=== PATIENT | female | born 1945 | race African-American/Black ===

== ENCOUNTER 2020-03-04 18:17 | Inpatient (IN) | payer OTHER ==
[~2020-03-04] VITALS: Ht 157.5 cm; Wt 104.0 kg
[2020-03-04 19:06] LABS: BASO # 0.1 x10^3/uL (0.0-0.2); BASO % 1 % (0-3); EOS # 0.3 x10^3/uL (0.0-0.7); EOS % 2 % (0-3); HEMATOCRIT 34.5 % (36.0-47.0); HEMOGLOBIN 11.3 g/dL (12.0-15.5); LYMPH # 1.8 x10^3/uL (1.0-4.8); LYMPH % 13 % (24-48); MEAN CORPUSCULAR HEMOGLOBIN 29 pg (25-35); MEAN CORPUSCULAR HGB CONC 33 g/dL (31-37); MEAN CORPUSCULAR VOLUME 87 fL (79-100); MONO % 7 % (0-9); NEUT # 10.4 x10^3/uL (1.8-7.7); NEUT % 77 % (31-73); PLATELET COUNT 364 x10^3/uL (140-400); RED BLOOD COUNT 3.98 x10^6/uL (3.50-5.40); RED CELL DISTRIBUTION WIDTH 14.9 % (11.5-14.5); WHITE BLOOD COUNT 13.5 x10^3/uL (4.0-11.0)
[2020-03-04 19:15] LABS: CALCIUM 9.5 mg/dL (8.5-10.1); CREATININE 2.3 mg/dL (0.6-1.0); GFR 25.2; POTASSIUM 3.6 mmol/L (3.5-5.1)
[2020-03-04] MEDS ORDERED: ONDANSETRON PF 4 MG/2 ML VIAL. IV PRN (19:15)
[2020-03-04 19:20] LABS: ALBUMIN 2.8 g/dL (3.4-5.0); ALBUMIN/GLOBULIN RATIO 0.5 (1.0-1.7); TOTAL PROTEIN 8.3 g/dL (6.4-8.2)
[2020-03-04 19:39] LABS: C-REACTIVE PROTEIN 243.5 mg/L (0-3.3)
--- NOTE | 2020-03-04 19:44 | PHYS DOC ---
Past Medical History Past Medical History: Arthritis, Hypertension Additional Past Medical Histor: COLON CX, COLON CX, PE'S, CELLULITIS Additional Past Surgical Histo: COLON RESECTION, Smoking Status: Never Smoker Alcohol Use: None General Adult EDM: Chief Complaint: HIP PAIN HPI: HPI: Patient is a 74 year old AA presents to the emergency department with complaints of left hip pain for the last week that is so severe she is unable to bear weight. Patient denies any recent fall or trauma to her hip. She also complains of bilateral lower extremity redness that is worse on the right than the left. Patient states she has been fighting off a cellulitis infection for several months. She denies any drainage from her legs. She denies any fever, cough, shortness of breath, body aches, fatigue, nausea, vomiting, diarrhea, abdominal pain, chest pain, palpitations, or headache. She currently rates the pain in her left hip a 5 out of 10 on the pain scale, she denies any alleviating factors, states that the pain in her hip gets worse with movement and weightbearing. Patient denies any exposure to anyone with COVID symptoms. Review of Systems: Review of Systems: Constitutional: Denies fever or chills. [] Eyes: Denies change in visual acuity. [] HENT: Denies nasal congestion or sore throat. [] Respiratory: Denies cough or shortness of breath. [] Cardiovascular: Denies chest pain or edema. [] GI: Denies abdominal pain, nausea, vomiting, bloody stools or diarrhea. [] : Denies dysuria. [] Musculoskeletal: See HPI Integument: See HPI Neurologic: Denies headache, focal weakness or sensory changes. [] Endocrine: Denies polyuria or polydipsia. [] Lymphatic: Denies swollen glands. [] Psychiatric: Denies depression or anxiety. [] Heart Score: Risk Factors: Risk Factors: DM, Current or recent (<one month) smoker, HTN, HLP, family history of CAD, obesity. Risk Scores: Score 0 - 3: 2.5% MACE over next 6 weeks - Discharge Home Score 4 - 6: 20.3% MACE over next 6 weeks - Admit for Clinical Observation Score 7 - 10: 72.7% MACE over next 6 weeks - Early Invasive Strategies Current Medications: Current Medications Medications (Trade) Dose Ordered Sig/Estee Start Time Stop Time Status Last Admin Dose Admin Fentanyl Citrate (Fentanyl 2ml Vial) 50 mcg PRN Q1HR PRN 03/04/20 19:15 03/05/20 19:14 Ondansetron HCl (Zofran) 4 mg PRN Q8HRS PRN 03/04/20 19:15 03/05/20 19:14 Allergies: Allergies: Allergies Coded Allergies Type Severity Reaction Last Updated Verified doxycycline Allergy Mild RASH 03/04/20 Yes hydralazine Allergy Mild RASH 03/04/20 Yes morphine Allergy Mild RASH 03/04/20 Yes Physical Exam: PE: Constitutional: Well developed, well nourished, no acute distress, non-toxic appearance, obese. [] HENT: Normocephalic, atraumatic, bilateral external ears normal, nose normal. [] Eyes: PERRLA, EOMI, conjunctiva normal, no discharge. [] Neck: Normal range of motion, no tenderness, supple, no stridor. [] Cardiovascular:Heart rate regular rhythm, no murmur [] Lungs & Thorax: Bilateral breath sounds clear to auscultation, Respirations even and unlabored, no retractions, no respiratory distress [] Abdomen:soft, no tenderness, no masses, no pulsatile masses. [] Skin: Warm, dry; erythema, 2+ edema, and warmth of the right lower extremity below the knee extending to the foot without weeping concerning for cellulitis; lower left extremity redness, 2+ edema, and warmth from the mid calf to the ankle concerning for cellulitis. Back: No tenderness Extremities: Left hip:no bony tenderness, no cyanosis, no clubbing, ROM and limited due to pain, no shortening or rotation noted Neurologic: Alert and oriented X 3, no focal deficits noted. [] Psychologic: Affect normal, judgement normal, mood normal. [] Current Patient Data: Labs: Laboratory Tests Test 03/04/20 18:56 White Blood Count 13.5 x10^3/uL (4.0-11.0) H Red Blood Count 3.98 x10^6/uL (3.50-5.40) Hemoglobin 11.3 g/dL (12.0-15.5) L Hematocrit 34.5 % (36.0-47.0) L Mean Corpuscular Volume 87 fL (79-100) Mean Corpuscular Hemoglobin 29 pg (25-35) Mean Corpuscular Hemoglobin Concent 33 g/dL (31-37) Red Cell Distribution Width 14.9 % (11.5-14.5) H Platelet Count 364 x10^3/uL (140-400) Neutrophils (%) (Auto) 77 % (31-73) H Lymphocytes (%) (Auto) 13 % (24-48) L Monocytes (%) (Auto) 7 % (0-9) Eosinophils (%) (Auto) 2 % (0-3) Basophils (%) (Auto) 1 % (0-3) Neutrophils # (Auto) 10.4 x10^3/uL (1.8-7.7) H Lymphocytes # (Auto) 1.8 x10^3/uL (1.0-4.8) Monocytes # (Auto) 1.0 x10^3/uL (0.0-1.1) Eosinophils # (Auto) 0.3 x10^3/uL (0.0-0.7) Basophils # (Auto) 0.1 x10^3/uL (0.0-0.2) Activated Partial Thromboplast Time 31 SEC (24-38) Sodium Level 137 mmol/L (136-145) Potassium Level 3.6 mmol/L (3.5-5.1) Chloride Level 98 mmol/L (98-107) Carbon Dioxide Level 28 mmol/L (21-32) Anion Gap 11 (6-14) Blood Urea Nitrogen 32 mg/dL (7-20) H Creatinine 2.3 mg/dL (0.6-1.0) H Estimated GFR (Cockcroft-Gault) 25.2 BUN/Creatinine Ratio 14 (6-20) Glucose Level 94 mg/dL (70-99) Calcium Level 9.5 mg/dL (8.5-10.1) Total Bilirubin Pending Aspartate Amino Transferase (AST) Pending Alanine Aminotransferase (ALT) Pending Alkaline Phosphatase Pending C-Reactive Protein, Quantitative Pending Total Protein Pending Albumin Pending Albumin/Globulin Ratio Pending Laboratory Tests 03/04/20 18:56 Laboratory Tests 03/04/20 18:56 Vital Signs: Vital Signs Date Time Temp Pulse Resp B/P (MAP) Pulse Ox O2 Delivery O2 Flow Rate FiO2 03/04/20 19:30 79 20 114/56 (75) 100 Room Air 03/04/20 18:36 98.6 98.6 EKG: EKG: [] Radiology/Procedures: Radiology/Procedures: PROCEDURE: HIP LEFT 2V WITH PELVIS EXAM: AP pelvis, AP and lateral views left hip DATE: 03/04/2020 7:09 PM INDICATION: Left hip pain COMPARISON: No Prior FINDINGS/ IMPRESSION: 1. Within the constraints of osteopenia, no evidence for acute fracture or dislocation. Given the degree of osteopenia, if there is persistent clinical concern for fracture, MRI is recommended. 2. Hip joint spaces are preserved. 3. Lower lumbar spine degenerative changes are partially profiled.[] Course & Med Decision Making: Course & Med Decision Making Pertinent Labs and Imaging studies reviewed. (See chart for details) 1909-spoke with Dr. Garnett who is the admitting physician, and care was assumed following discussion of patient. Patient's vital signs stable. Patient remains afebrile, appears nontoxic, respirations even and unlabored. Patient will be admitted to the med/surg floor. Patient's case and plan of care also discussed with Dr. Crews [] Joon Disclaimer: Joon Disclaimer: This electronic medical record was generated, in whole or in part, using a voice recognition dictation system. Departure Departure Impression: Primary Impression: Cellulitis of right lower extremity Additional Impression: Unable to bear weight Disposition: ADMITTED INPATIENT Admitting Physician: Fortunato Garnett Condition: STABLE Referrals: AFIA DE LUNA (PCP) CYRUS DIAZ APRN Mar 04, 2020 19:44
[2020-03-04] MEDS: fentaNYL PF VIAL 100 MCG/2 ML VIAL IV PRN (19:58)
--- NOTE | 2020-03-04 20:08 | RAD ---
EXAM: AP pelvis, AP and lateral views left hip DATE: 03/04/2020 7:09 PM INDICATION: Left hip pain COMPARISON: No Prior FINDINGS/ IMPRESSION: 1. Within the constraints of osteopenia, no evidence for acute fracture or dislocation. Given the degree of osteopenia, if there is persistent clinical concern for fracture, MRI is recommended. 2. Hip joint spaces are preserved. 3. Lower lumbar spine degenerative changes are partially profiled. 4. Vascular calcifications are seen. Electronically signed by: Mane Purcell MD (03/04/2020 8:05 PM) CRYSTAL
--- NOTE | 2020-03-04 20:20 | NUR ---
The patient, SHAMIKA BEAR, 74 y/o, F admitted by ALESSIA JOHNSTON MD, was given written information regarding hospital policies, unit procedures and contact persons. Valuables left with daughter and taken home. Daughter left personal Bible with Patient Daughter has list of medication and said, Pt takes Albuterol as needed, Tylenol as needed, Potassium 20MeQ as needed, Lasix 40 mg in AM, and valsartan/ HTZ, spoke with pharmacy and suggested to verify amounts of medication in the AM with [facility].
[2020-03-04] MEDS: CLINDAMYCIN 600MG PREMIX 50 ML IV SCH (21:32)
[2020-03-04 23:00] VITALS: BP 153/107
[2020-03-05] MEDS: fentaNYL PF VIAL 100 MCG/2 ML VIAL IV PRN ×2 (01:11→07:35)
[2020-03-05 03:00] VITALS: BP 125/55
[2020-03-05] MEDS ORDERED: ACETAMINOPHEN 500 MG TABLET PO PRN (04:45)
[2020-03-05] MEDS ORDERED: ALBUTEROL SULFATE 2.5 MG/3 ML NEBU. NEB PRN (04:45)
--- NOTE | 2020-03-05 05:02 | NUR ---
Pt's daughter called and verified amounts and times for medications. Pt brought from home Thera worx Relief for muscle cramps. Sending bottle to pharmacy to label. Pt is aware that will need to evaluate all medication.
[2020-03-05] MEDS: CLINDAMYCIN 600MG PREMIX 50 ML IV SCH ×3 (06:10→21:56)
[2020-03-05 07:15] VITALS: BP 125/53
[2020-03-05] MEDS: HYDROcodone/APAP 7.5/325MG 1 TAB TABLET PO PRN ×3 (08:56→21:57)
[2020-03-05] MEDS: hydroCHLOROthiazide 25 MG TABLET PO SCH (08:57)
[2020-03-05] MEDS: FUROSEMIDE 40 MG TABLET. PO SCH (08:58)
[2020-03-05] MEDS ORDERED: VALSARTAN PO SCH (09:00)
[2020-03-05] MEDS ORDERED: HCTZ PO SCH (09:00)
[2020-03-05 09:51] LABS: BASO # 0.1 x10^3/uL (0.0-0.2); BASO % 1 % (0-3); EOS # 0.3 x10^3/uL (0.0-0.7); EOS % 3 % (0-3); HEMATOCRIT 32.7 % (36.0-47.0); HEMOGLOBIN 10.8 g/dL (12.0-15.5); LYMPH # 1.1 x10^3/uL (1.0-4.8); LYMPH % 9 % (24-48); MEAN CORPUSCULAR HEMOGLOBIN 29 pg (25-35); MEAN CORPUSCULAR HGB CONC 33 g/dL (31-37); MEAN CORPUSCULAR VOLUME 86 fL (79-100); MONO # 0.8 x10^3/uL (0.0-1.1); MONO % 7 % (0-9); NEUT # 9.1 x10^3/uL (1.8-7.7); NEUT % 80 % (31-73); PLATELET COUNT 368 x10^3/uL (140-400); RED BLOOD COUNT 3.78 x10^6/uL (3.50-5.40); RED CELL DISTRIBUTION WIDTH 14.5 % (11.5-14.5); WHITE BLOOD COUNT 11.4 x10^3/uL (4.0-11.0)
[2020-03-05 09:59] LABS: CALCIUM 8.5 mg/dL (8.5-10.1); CREATININE 1.7 mg/dL (0.6-1.0); GFR 35.7; POTASSIUM 3.4 mmol/L (3.5-5.1)
[2020-03-05] MEDS ORDERED: fentaNYL PF VIAL 100 MCG/2 ML VIAL IVP PRN (10:15)
--- NOTE | 2020-03-05 10:17 | PDOC ---
Provider Note Provider Note Pt seen.H&P dictated.#[id number]. ALESSIA JOHNSTON MD March 05, 2020 10:17
[2020-03-05] MEDS ORDERED: IOHEXOL 240 MG/ML 50ML VIAL. PO ONE (10:30)
[2020-03-05] MEDS ORDERED: CONTRAST GIVEN. MC PRN (10:30)
[2020-03-05] MEDS ORDERED: ENOXAPARIN 30 MG/0.3 ML SYRINGE. SQ SCH (11:00)
--- NOTE | 2020-03-05 11:05 | HP ---
ADMIT DATE: 03/04/2020 LOCATION: [facility]. REASON FOR ADMISSION TO THE HOSPITAL: Severe hip pain, not able to ambulate at home, worse for the last 4-5 days. HISTORY OF PRESENT ILLNESS: The patient is a 75-year-old female, patient of Dr. Spears. She usually ambulates with a cane and she thinks she had eaten something bad at [facility] couple of days ago. Her stomach got upset and had pain in the lower abdomen. She also noticed some cellulitis of lower extremities, but she was having severe pain in the left hip. She could hardly move around and was brought into the hospital. The patient had cellulitis of the lower extremity and was started on clindamycin. X-ray of the hip did not show any fracture, but she is not able to even bear weight on that and was admitted to the hospital for further investigation and treatment. The patient has a history of chronic kidney disease stage 3, sees Dr. Aguilar, hypertension, obesity. PAST SURGICAL HISTORY: Had a colon cancer in 2012 and she had part of the colon removed, had chemo for 1 year, mostly at [facility] and the last followup was 3 years ago. She says she had a colonoscopy at that time. ALLERGIES: THE PATIENT IS ALLERGIC TO DOXYCYCLINE, MORPHINE AND HYDRALAZINE. MEDICATIONS AT HOME: The patient is on Lasix 40 mg, losartan 100 mg, hydrochlorothiazide 25 mg. PERSONAL HISTORY: No history of smoking, alcohol, drug abuse. FAMILY HISTORY: Positive for heart problems, hypertension, kidney problems. REVIEW OF SYSTEMS: The patient has severe pain in the left, had stomach upset a week ago when she ate bad burger at [facility] and had stomach upset at that time. Denies any fever. PHYSICAL EXAMINATION: GENERAL: The patient is obese, weighs 104 kg, BMI is 42. Not in distress. HEENT: Head is atraumatic. Pupils are equal. Oral cavity: No congestion. NECK: Supple. Thyroid not enlarged. JVD not elevated. CHEST: Symmetrical. CARDIOVASCULAR: S1, S2. LUNGS: Clear to auscultation. No wheezing. ABDOMEN: Scar in the midline from previous abdominal surgeries. Soft, slight discomfort in lower abdomen. No rebound. EXTERNAL GENITALIA: No Du. RECTAL: Deferred. EXTREMITIES: Left leg, no swelling. Right leg, some redness [id number] and slightly warm to touch and slightly tender. The patient has severe pain in the left hip, not able to even bend the hip or move around in the hip and no rash in the skin. LABORATORY DATA: Shows a white count of 13.5, hemoglobin 11.3, platelets 364. INR is 31. Electrolytes show sodium 137, potassium 3.6, chloride 98, bicarbonate 28, anion gap 11, BUN 32, creatinine 2.3, glucose 94. LFTs normal. FINAL IMPRESSION: 1. Severe hip pain, not able to move, not sure the reason, will do workup. 2. Right leg cellulitis, on clindamycin. 3. Chronic kidney disease stage 3. 4. Morbid obesity. 5. History of colon cancer, had a surgery and chemo in 2012. Last colon check was 3 years ago. PLAN: At this time, the patient was admitted to the hospital. We will start on clindamycin for cellulitis, venous Doppler of lower extremities. We will also have CT of the chest, abdomen and pelvis because of history of colon cancer, rule out any recurrence and also CT of the lumbar spine as well as left hip including pelvis to rule out any metastasis. We will also have orthopedic consult and also rehab consult. The patient has chronic kidney disease as seen by Renal. We will hold off at this point and also Oncology will hold off at this point until we get the results of CAT scan. ALESSIA JOHNSTON MD DR: FABIO/kalpesh JOB#: [id number] / [id number] AFIA Gallardo
[2020-03-05 11:48] VITALS: BP 128/77
--- NOTE | 2020-03-05 12:10 | NUR ---
SW following. Discussed with RN, pt from home with daughter, room air. Pt getting CAT scan today, clindamycin for cellulitis. Pt not able to bear weight on one hip. No PT/OT ordered at this time. SW will continue to follow for discharge planning.
[2020-03-05] MEDS: oxyCODONE/APAP 10/325 1 TAB TABLET PO PRN (12:48)
[2020-03-05] MEDS: LOSARTAN POTASSIUM 50 MG TABLET. PO SCH (12:52)
--- NOTE | 2020-03-05 12:59 | RAD ---
INDICATION: Leg pain COMPARISON: None. TECHNIQUE: Grayscale, color and doppler ultrasound images were obtained of the bilateral lower extremity venous vasculature. RIGHT: No thrombus identified in the common femoral vein, femoral vein, popliteal vein. LEFT: No thrombus identified in the common femoral vein, femoral vein, popliteal vein. IMPRESSION: * No thrombus identified in deep venous system of bilateral lower kidneys with the calf veins not well evaluated. * 33 x 20 x 17 mm hypoechoic lesion of the right groin. Could be from an abnormal lymph node within the area or soft tissue mass. Further workup option includes obtaining a follow-up to ensure that this appropriately decreases in size or obtaining a biopsy. Electronically signed by: He Giron MD (03/05/2020 12:56 PM) [id number]
--- NOTE | 2020-03-05 13:28 | CONS ---
DATE OF CONSULTATION: 03/05/2020 ATTENDING PHYSICIAN: Fortunato Garnett MD REASON FOR CONSULTATION: The patient was seen at the request of Dr. Garnett for rehab evaluation. LOCATION: She is in room 436. HISTORY OF PRESENT ILLNESS: This is a 74-year-old female patient of Dr. Spears, usually walks using a cane. A few days ago, she went to [facility] and came home and work on her yard. She had osteoarthritis of her knees and lower extremity edema and cellulitis of her lower extremities. She started having severe left hip area pain, difficulty to get around, was admitted to the Emergency Room on 03/04/2020. She lives alone and had steps to enter the house plus to the basement where washer and dryer are located. The patient had radiological studies, which failed to reveal any acute abnormality. The patient denies any back pain. She is with known chronic kidney disease stage 3, being followed by Nephrology, hypertension, obesity, carcinoma of colon in 2012, had part of the colon removed, had chemotherapy for about 1 year. ALLERGIES: THE PATIENT IS KNOWN ALLERGIC TO DOXYCYCLINE, MORPHINE AND HYDRALAZINE. PHYSICAL EXAMINATION: Physical examination today revealed an elderly female. She is alert, oriented to time, place, person and circumstance and follows commands appropriately, moves all 4 extremities voluntarily where she had 4+/5 grade muscle strength and deep tendon reflexes are 2+ and symmetrical and she had equal perception of touch and pinprick sensation bilaterally. She had crepitus on range of motion of her knee joint. She had significant discomfort on external rotation of left hip joint. The patient had tenderness to palpation over left trochanteric bursa area. No significant tenderness to palpation over lumbar spine area. Straight leg raising test is negative bilaterally. She had significant edema of her feet and legs, right side more than left side, tenderness to palpation over right calf or medial knee joint line. The patient requires help with rolling from side to side. I have not tested her transfers or ambulation skills at this time. ASSESSMENT AND PLAN: Elderly female with morbid obesity, chronic kidney disease, hypertension with chronic lower extremity cellulitis and clinical evidence of lymphedema of her feet and legs, right side more than left side. Also, degenerative joint disease of both knees with degenerative changes in her left hip got worse after she did some yard work a few days ago with mobility limitations secondary to severe left hip pain. RECOMMENDATIONS: As she had chronic kidney disease, to start her on prednisone and Protonix and to get her up as tolerated, to even ask Radiology to proceed with injecting her left hip joint using Marcaine and Depo-Medrol. Dr. Garnett, I appreciate asking me to participate in the care of this interesting patient. I will be glad to see her for followup with you on as needed basis. DANIAL WEBB MD DR: MARILIN/nts JOB#: [id number] / [id number]
--- NOTE | 2020-03-05 13:35 | RAD ---
CT LOWER EXTREMITY WO LEFT Indication: Colon cancer, recent history of left hip pain Technique: Noncontrast CT imaging was performed of the left hip, multiplanar reconstruction images submitted. One or more of the following individualized dose reduction techniques were utilized for this examination: 1. Automated exposure control 2. Adjustment of the mA and/or kV according to patient size 3. Use of iterative reconstruction technique. Comparison: None Findings: No aggressive bony destructive lesion or acute fracture or dislocation is identified. IMPRESSION: 1. No acute fracture or bony destructive lesion is identified by CT. Electronically signed by: Roe Ashton MD (03/05/2020 1:32 PM) [id number]
[2020-03-05] MEDS ORDERED: methylPREDNISolone ACETATE 80 MG/ML VIAL. IM ONE (13:45)
[2020-03-05] MEDS ORDERED: IOHEXOL 300 MG/ML 50 ML VIAL. IJ ONE (13:45)
[2020-03-05] MEDS ORDERED: BUPIVACAINE MPF 0.25% 10 ML VIAL. IJ ONE (13:45)
--- NOTE | 2020-03-05 13:45 | RAD ---
CT CHEST ABDOMEN PELVIS WO, CT LUMBAR SPINE WO CONTRAST Indication: Colon cancer Technique: Noncontrast CT imaging was performed of the chest, abdomen, pelvis, lumbar spine, multiplanar reconstruction images submitted. Oral contrast was given. One or more of the following individualized dose reduction techniques were utilized for this examination: 1. Automated exposure control 2. Adjustment of the mA and/or kV according to patient size 3. Use of iterative reconstruction technique. Comparison: Chest CT April 27, 2008; abdomen pelvis CT July 24, 2013 CHEST: Findings: There is some motion degradation. Minimal density in the trachea is more likely due to mucus than mass. There is some coronary calcification. There is no suspicious pulmonary nodularity, infiltrate, pleural pericardial fluid, or pneumothorax. There is multilevel thoracolumbar degenerative disc disease. There is moderate mid thoracic dextroscoliosis. IMPRESSION: 1. There is no CT evidence of metastatic disease to the chest. 2. There is coronary calcification. Abdomen pelvis FINDINGS: Accurate evaluation of the abdominal visceral organs is limited without intravenous contrast. There is no obvious focal abnormality of the liver, spleen, or pancreas allowing for noncontrast technique. There is gallstone. There is 2.8 cm AP by 1.5 cm right adrenal nodule, density measurements about 19 Hounsfield units. There is no hydronephrosis of either kidney. There is a slightly hyperdense lesion of the mid right kidney on the order 1.9 cm in size, internal density measurements of 101 Hounsfield units, greater than adjacent renal parenchyma. There is broad ventral laxity of the abdominal and pelvic fascia with underlying bowel. There is moderate to severe diverticulosis of the proximal sigmoid colon and to a somewhat lesser degree descending colon. There is relatively greater degree of distention of the transverse colon in the pelvis. Small bowel is not dilated. No free fluid or free air is identified. There are some nonspecific inguinal nodes bilaterally right greater than left, largest on the right up to about 1.1 cm short axis dimension. There are some mostly subcentimeter nodes along the iliac chains bilaterally, largest right iliac chain nodes about 1 cm short axis dimension. There are also some other more superior retroperitoneal nodes although not considered significantly enlarged based on short axis dimensions. There is probable mass of the left uterus poorly evaluated on this exam, may measure about 5 cm in size. IMPRESSION: 1.There are some nonspecific inguinal nodes bilaterally right greater than left, somewhat prominent on the right. There are also some nonspecific retroperitoneal nodes and nodes along the iliac chains although not significantly enlarged. 2. There is cholelithiasis. 3. There is colonic diverticulosis greatest of the sigmoid colon. 4. There is a hyperdense lesion of the right kidney for which attempt at ultrasound visualization recommended. This could be a complex or hemorrhagic cyst although solid mass not excluded. 5. There is likely left uterine mass, more commonly due to leiomyoma. Lumbar spine FINDINGS: Lumbar vertebral body stature is overall maintained. There is multilevel lumbar facet degenerative change. No defined bony destructive lesion is identified by CT. There is likely minimal posterior bulge L3-4. There is probable mild to moderate spinal stenosis at L3-4 in part from facet hypertrophic change and buckling of the ligamentum flavum with probable left greater than right lateral recess stenosis. There is likely degree of at least mild lateral recess stenosis bilaterally at L4-5 primarily from posteriorly by facet hypertrophic change. Facet degenerative change contributes to moderate to severe posterior narrowing of the left L5-S1 neural foramen, mild narrowing of the left at L2-3. There is also fairly severe neural foramina compromise bilaterally at T10-11 due to facet degenerative change, also [id number] narrowing on the left at T11-12. There is at least mild narrowing on the right at L4-5 and L5-S1 also from facet degenerative change. There is overall mild degenerative disc disease greatest L2-3 through L4-5. There is grade 1 anterior spondylolisthesis at L4-5 due to facet degenerative change. IMPRESSION: 1.There is multilevel thoracolumbar neural foramina compromise due to facet degenerative change, more significant narrowing on the left at L5-S1 and bilaterally at T10-T11. 2. There is grade 1 anterior spondylolisthesis L4-5. 3. Poorly evaluated on this nonmyelographic exam, there is probable mild to moderate spinal stenosis with left greater than right lateral recess stenosis at L3-4. Electronically signed by: Roe Ashton MD (03/05/2020 1:42 PM) [id number]
--- NOTE | 2020-03-05 13:52 | NUR ---
consent for left hip injection obtained. inc of urine; cleansed
[2020-03-05] MEDS ORDERED: LIDOCAINE 1% Multi-Dose 20 ML VIAL. INJ ONE (14:45)
[2020-03-05] MEDS: predniSONE 10 MG TABLET PO SCH (15:26)
[2020-03-05] MEDS: PANTOPRAZOLE 40 MG TABLET.DR. PO SCH (15:26)
[2020-03-05 15:38] VITALS: BP 139/70
--- NOTE | 2020-03-05 16:14 | RAD ---
Examination: ARTHROCENT MJR FelixT ASP/INJ LEFT History: Severe left hip pain. Comparison/Correlation: CT chest abdomen and pelvis 03/05/2020 Findings: Risks and benefits of left hip joint medication injection under fluoroscopic guidance were discussed with the patient and informed consent was obtained. Fluoroscopy was utilized for 1.2 minutes. 2 fluoroscopic images were acquired. Cleansing of the infiltrated site of needle placement with Betadine was performed. Sterile drapes were placed. 5 cc 1 percent lidocaine was administered at the anticipated site of spinal needle placement. A 6 inch 20-gauge spinal needle was then introduced under fluoroscopic guidance into the lateral aspect of the left hip joint along the left femoral head-neck junction. Approximately 3 cc of contrast was injected confirming needle placement. 80 mg of Depo-Medrol and 8 cc of Marcaine were injected into the left hip joint capsule. The patient tolerated the procedure well without immediate complications. Impression: Successful injection of Depo-Medrol and Marcaine into the left hip joint capsule. Electronically signed by: Juan M Hairston MD (03/05/2020 4:11 PM) [id number]
--- NOTE | 2020-03-05 18:20 | RAD ---
Exam: Ultrasound bilateral extremity lower arterial Indication: Pain bilateral lower extremity Technique: Real-time grayscale and color Doppler images of the bilateral lower extremity were obtained by the department reading assistant. Comparisons: None FINDINGS: Peak systolic velocities as follows(cm/s): Right: COMMERCIAL CREDIT HEAD: 182 DFA: 185 Proximal SFA: 159 Mid SFA: 111 Distal SFA: 318 Popliteal: 153 [employer]ER: 106 Peroneal: 69 TOSIN: 64 DPA: 57 Monophasic waveforms are noted throughout the right lower extremity. Left: COMMERCIAL CREDIT HEAD: 162 DFA: 81 Proximal SFA: 165 Mid SFA: 115 Distal SFA: 108 Popliteal: 214 [employer]: 24 Peroneal: 87 TOSIN: 43 DPA: 63 Monophasic waveforms are noted throughout the left lower extremity IMPRESSION: 1. Monophasic waveforms throughout the bilateral lower extremities likely indicating upstream stenosis. 2. Scattered areas of increased velocities likely in the right SFA and left popliteal artery suggesting scattered areas of moderate to severe stenosis. Electronically signed by: Desiree Valentin MD (03/05/2020 6:17 PM) [id number]
[2020-03-05 19:00] VITALS: BP 100/50
[2020-03-05 23:00] VITALS: BP 120/77
[2020-03-06 03:00] VITALS: BP 111/61
[2020-03-06] MEDS: CLINDAMYCIN 600MG PREMIX 50 ML IV SCH ×2 (06:03→16:56)
[2020-03-06 07:00] VITALS: BP 131/54
--- NOTE | 2020-03-06 08:06 | PDOC2 ---
CONSULT Date of Consult Date of Consult DATE: 03/06/20 TIME: 08:02 Reason for Consult Reason for Consult: Left hip pain Referring Physician Referring Physician: Mariola Identification/Chief Complaint Chief Complaint No complaints Source Source: Patient History of Present Illness Reason for Visit: Patient is a pleasant 74-year-old female without a history of hip complaints who tells me that in the past week she developed acute lateral and anterior hip pain, no precipitating events. The pain was so bad she had difficulty walking. She came into the hospital secondary to this unable to ambulate and out of concern for cellulitis due to some erythema in her bilateral lower extremities. Currently she is not complaining of any pain anywhere. She had an image guided injection yesterday which took care of her pain. She has been able to ambulate and is doing much better. Past Medical History Cardiovascular: HTN CENTRAL NERVOUS SYSTEM: TIA GI: GERD Heme/Onc: Cancer Psych: No pertinent hx Musculoskeletal: Osteoarthritis Past Surgical History Past Surgical History: Colon Resection Family History Family History: Heart Disease Social History No ALCOHOL: none Current Medications Current Medications Current Medications Ondansetron HCl (Zofran) 4 mg PRN Q8HRS PRN IV NAUSEA/VOMITING; Start 03/04/20 at 19:15; Stop 03/05/20 at 19:14; Status DC Fentanyl Citrate (Fentanyl 2ml Vial) 50 mcg PRN Q1HR PRN IV PAIN Last administered on 03/05/20at 07:35; Start 03/04/20 at 19:15; Stop 03/05/20 at 19:14; Status DC Clindamycin Phosphate 50 ml @ 100 mls/hr Q8HRS IV Last administered on 03/06/20at 06:03; Start 03/04/20 at 21:00 Acetaminophen (Tylenol) 500 mg PRN Q6HRS PRN PO MILD PAIN / TEMP > 100.3'F; Start 03/05/20 at 04:45 Albuterol Sulfate (Ventolin Neb Soln) 2.5 mg PRN Q4HRS PRN NEB SHORTNESS OF BREATH; Start 03/05/20 at 04:45 Furosemide (Lasix) 40 mg DAILY PO Last administered on 03/05/20at 08:58; Start 03/05/20 at 09:00 Non-Formulary Medication 1 ea DAILY PO ; Start 03/05/20 at 09:00; Status Cancel Acetaminophen/ Hydrocodone Bitart (Lortab 7.5/325) 1 tab PRN Q6HRS PRN PO MODERATE - SEVERE PAIN Last administered on 03/05/20at 21:57; Start 03/05/20 at 05:00 Losartan Potassium (Cozaar) 100 mg DAILY PO Last administered on 03/05/20 12:52; Start 03/05/20 at 09:00 Hydrochlorothiazide (Hydrodiuril) 25 mg DAILY PO Last administered on 03/05/20 08:57; Start 03/05/20 at 09:00 Oxycodone/ Acetaminophen (Percocet 10/325) 1 tab PRN Q4HRS PRN PO hip pain Last administered on 03/05/20 12:48; Start 03/05/20 at 10:15 Fentanyl Citrate (Fentanyl 2ml Vial) 50 mcg PRN Q2HR PRN IVP PAIN; Start 03/05/20 at 10:15 Enoxaparin Sodium (Lovenox 30mg Syringe) 30 mg Q24H SQ Last administered on 03/05/20at 12:52; Start 03/05/20 at 11:00 Iohexol (Omnipaque 240 Mg/ml) 30 ml 1X ONCE PO Last administered on 03/05/20 10:30; Start 03/05/20 at 10:30; Stop 03/05/20 at 10:31; Status DC Info (CONTRAST GIVEN -- Rx MONITORING) 1 each PRN DAILY PRN MC SEE COMMENTS; Start 03/05/20 at 10:30; Stop 03/07/20 at 10:29 Prednisone (Prednisone) 10 mg DAILY PO Last administered on 03/05/20at 15:26; Start 03/05/20 at 13:00 Pantoprazole Sodium (Protonix) 40 mg DAILYAC PO Last administered on 03/05/20 15:26; Start 03/05/20 at 13:00 Methylprednisolone Acetate (DEPO-Medrol 80MG VIAL) 80 mg 1X ONCE IM Last administered on 03/05/20 13:45; Start 03/05/20 at 13:45; Stop 03/05/20 at 13:46; Status DC Bupivacaine HCl (Sensorcaine-Mpf 0.25%) 10 ml 1X ONCE IJ Last administered on 03/05/20at 13:45; Start 03/05/20 at 13:45; Stop 03/05/20 at 13:46; Status DC Iohexol (Omnipaque 300 Mg/ml) 50 ml 1X ONCE IJ Last administered on 03/05/20at 13:45; Start 03/05/20 at 13:45; Stop 03/05/20 at 13:46; Status DC Lidocaine HCl (Lidocaine 1% 20ml Vial) 20 ml 1X ONCE INJ Last administered on 03/05/20at 14:45; Start 03/05/20 at 14:45; Stop 03/05/20 at 14:47; Status DC Allergies Allergies: Coded Allergies: doxycycline (Verified Allergy, Mild, RASH, 03/04/20) hydralazine (Verified Allergy, Mild, RASH, 03/04/20) morphine (Verified Allergy, Mild, RASH, 03/04/20) ROS General: No: Chills, Night Sweats, Fatigue, Malaise, Appetite, Other PSYCHOLOGICAL ROS: No: Anxiety, Behavioral Disorder, Concentration difficultie, Decreased libido, Depression, Disorientation, Hallucinations, Hostility, Irritablity, Memory difficulties, Mood Swings, Obsessive thoughts, Physical abuse, Sexual abuse, Sleep disturbances, Suicidal ideation, Other Eyes: No Blurry vision, No Decreased vision, No Double vision, No Dry eyes, No Excessive tearing, No Eye Pain, No Itchy Eyes, No Loss of vision, No Photophobia, No Scotomata, No Uses contacts, No Uses glasses, No Other HEENT: No: Heacaches, Visual Changes, Hearing change, Nasal congestion, Nasal discharge, Oral lesions, Sinus pain, Sore Throat, Epistaxis, Sneezing, Snoring, Tinnitus, Vertigo, Vocal changes, Other ALLERGY AND IMMUNOLOGY: No: Hives, Insect Bite Sensitivity, Itchy/Watery Eyes, Nasal Congestion, Post Nasal Drip, Seasonal Allergies, Other Hematological and Lymphatic: No: Bleeding Problems, Blood Clots, Blood Transfusions, Brusing, Night Sweats, Pallor, Swollen Lymph Nodes, Other ENDOCRINE: No: Breast Changes, Galactorrhea, Hair Pattern Changes, Hot Flashes, Malaise/lethargy, Mood Swings, Palpitations, Polydipsia/polyuria, Skin Changes, Temperature Intolerance, Unexpected Weight Changes, Other Respiratory: No: Cough, Hemoptysis, Orthopnea, Pleuritic Pain, Shortness of breath, SOB with excertion, Sputum Changes, Stridor, Tachypnea, Wheezing, Other Cardiovascular: No Chest Pain, No Palpitations, No Orthopnea, No Paroxysmal Noc. Dyspnea, No Edema, No Lt Headedness, No Other Gastrointestinal: No Nausea, No Vomiting, No Abdominal Pain, No Diarrhea, No Constipation, No Melena, No Hematochezia, No Other Genitourinary: No Dysuria, No Frequency, No Incontinence, No Hematuria, No Retention, No Discharge, No Urgency, No Pain, No Flank Pain, No Other, No , No , No , No , No , No , No Musculoskeletal: Yes Joint Stiffness Neurological: No Behavorial Changes, No Bowel/Bladder ControlChng, No Confusion, No Dizziness, No Gait Disturbance, No Headaches, No Impaired Coord/balance, No Memory Loss, No Numbness/Tingling, No Seizures, No Speech Problems, No Tremors, No Visual Changes, No Weakness, No Other Skin: Yes Rash Physical Exam General: Alert, Oriented X3 HEENT: Atraumatic, EOMI Lungs: Other (Respirations are unlabored with symmetric chest rise) Heart: Regular rate Abdomen: Soft, No tenderness Extremities: Other (She has mild erythema in her calves bilaterally. She does have edema around her feet and ankles bilaterally) Neuro: Normal speech, Strength at 5/5 X4 ext, Sensation intact Psych/Mental Status: Mental status NL, Mood NL MUSCULOSKELETAL: Other (No pain with passive or active range of motion in her hip. No tenderness laterally.) Vitals VITALS Vital Signs Date Time Temp Pulse Resp B/P (MAP) Pulse Ox O2 Delivery O2 Flow Rate FiO2 03/06/20 03:00 98.7 87 18 111/61 (78) 97 98.7 03/05/20 23:00 Room Air Labs Labs Laboratory Tests Test 03/04/20 18:56 03/05/20 09:35 White Blood Count 13.5 x10^3/uL (4.0-11.0) 11.4 x10^3/uL (4.0-11.0) Red Blood Count 3.98 x10^6/uL (3.50-5.40) 3.78 x10^6/uL (3.50-5.40) Hemoglobin 11.3 g/dL (12.0-15.5) 10.8 g/dL (12.0-15.5) Hematocrit 34.5 % (36.0-47.0) 32.7 % (36.0-47.0) Mean Corpuscular Volume 87 fL (79-100) 86 fL (79-100) Mean Corpuscular Hemoglobin 29 pg (25-35) 29 pg (25-35) Mean Corpuscular Hemoglobin Concent 33 g/dL (31-37) 33 g/dL (31-37) Red Cell Distribution Width 14.9 % (11.5-14.5) 14.5 % (11.5-14.5) Platelet Count 364 x10^3/uL (140-400) 368 x10^3/uL (140-400) Neutrophils (%) (Auto) 77 % (31-73) 80 % (31-73) Lymphocytes (%) (Auto) 13 % (24-48) 9 % (24-48) Monocytes (%) (Auto) 7 % (0-9) 7 % (0-9) Eosinophils (%) (Auto) 2 % (0-3) 3 % (0-3) Basophils (%) (Auto) 1 % (0-3) 1 % (0-3) Neutrophils # (Auto) 10.4 x10^3/uL (1.8-7.7) 9.1 x10^3/uL (1.8-7.7) Lymphocytes # (Auto) 1.8 x10^3/uL (1.0-4.8) 1.1 x10^3/uL (1.0-4.8) Monocytes # (Auto) 1.0 x10^3/uL (0.0-1.1) 0.8 x10^3/uL (0.0-1.1) Eosinophils # (Auto) 0.3 x10^3/uL (0.0-0.7) 0.3 x10^3/uL (0.0-0.7) Basophils # (Auto) 0.1 x10^3/uL (0.0-0.2) 0.1 x10^3/uL (0.0-0.2) Erythrocyte Sedimentation Rate 122 (0-25) Activated Partial Thromboplast Time 31 SEC (24-38) Sodium Level 137 mmol/L (136-145) 137 mmol/L (136-145) Potassium Level 3.6 mmol/L (3.5-5.1) 3.4 mmol/L (3.5-5.1) Chloride Level 98 mmol/L (98-107) 100 mmol/L (98-107) Carbon Dioxide Level 28 mmol/L (21-32) 30 mmol/L (21-32) Anion Gap 11 (6-14) 7 (6-14) Blood Urea Nitrogen 32 mg/dL (7-20) 26 mg/dL (7-20) Creatinine 2.3 mg/dL (0.6-1.0) 1.7 mg/dL (0.6-1.0) Estimated GFR (Cockcroft-Gault) 25.2 35.7 BUN/Creatinine Ratio 14 (6-20) Glucose Level 94 mg/dL (70-99) 114 mg/dL (70-99) Calcium Level 9.5 mg/dL (8.5-10.1) 8.5 mg/dL (8.5-10.1) Total Bilirubin 1.0 mg/dL (0.2-1.0) Aspartate Amino Transf (AST/SGOT) 24 U/L (15-37) Alanine Aminotransferase (ALT/SGPT) 32 U/L (14-59) Alkaline Phosphatase 110 U/L (46-116) C-Reactive Protein, Quantitative 243.5 mg/L (0-3.3) Total Protein 8.3 g/dL (6.4-8.2) Albumin 2.8 g/dL (3.4-5.0) Albumin/Globulin Ratio 0.5 (1.0-1.7) Laboratory Tests Test 03/05/20 09:35 White Blood Count 11.4 x10^3/uL (4.0-11.0) Red Blood Count 3.78 x10^6/uL (3.50-5.40) Hemoglobin 10.8 g/dL (12.0-15.5) Hematocrit 32.7 % (36.0-47.0) Mean Corpuscular Volume 86 fL (79-100) Mean Corpuscular Hemoglobin 29 pg (25-35) Mean Corpuscular Hemoglobin Concent 33 g/dL (31-37) Red Cell Distribution Width 14.5 % (11.5-14.5) Platelet Count 368 x10^3/uL (140-400) Neutrophils (%) (Auto) 80 % (31-73) Lymphocytes (%) (Auto) 9 % (24-48) Monocytes (%) (Auto) 7 % (0-9) Eosinophils (%) (Auto) 3 % (0-3) Basophils (%) (Auto) 1 % (0-3) Neutrophils # (Auto) 9.1 x10^3/uL (1.8-7.7) Lymphocytes # (Auto) 1.1 x10^3/uL (1.0-4.8) Monocytes # (Auto) 0.8 x10^3/uL (0.0-1.1) Eosinophils # (Auto) 0.3 x10^3/uL (0.0-0.7) Basophils # (Auto) 0.1 x10^3/uL (0.0-0.2) Sodium Level 137 mmol/L (136-145) Potassium Level 3.4 mmol/L (3.5-5.1) Chloride Level 100 mmol/L (98-107) Carbon Dioxide Level 30 mmol/L (21-32) Anion Gap 7 (6-14) Blood Urea Nitrogen 26 mg/dL (7-20) Creatinine 1.7 mg/dL (0.6-1.0) Estimated GFR (Cockcroft-Gault) 35.7 Glucose Level 114 mg/dL (70-99) Calcium Level 8.5 mg/dL (8.5-10.1) Images Images Hip and pelvis x-rays were interpreted by myself. Report was reviewed. She does have some mild degenerative changes bilaterally. Assessment/Plan Assessment/Plan The image guided hip injection took care of her pain. No need for any further intervention from my standpoint. I provided her with my contact information, she can follow-up with myself if she chooses for outpatient follow-up regarding her hip. She can weight-bear as tolerated. Activity as tolerated. Disposition per primary team PARDEEP BILLINGS II, MD March 06, 2020 08:06
[2020-03-06] MEDS: hydroCHLOROthiazide 25 MG TABLET PO SCH (08:42)
[2020-03-06] MEDS: FUROSEMIDE 40 MG TABLET. PO SCH (08:43)
[2020-03-06] MEDS: PANTOPRAZOLE 40 MG TABLET.DR. PO SCH (08:43)
[2020-03-06] MEDS: predniSONE 10 MG TABLET PO SCH (08:43)
[2020-03-06] MEDS: LOSARTAN POTASSIUM 50 MG TABLET. PO SCH (08:44)
--- NOTE | 2020-03-06 10:09 | PDOC ---
PROGRESS NOTES Subjective Subjective She admits some easing of her pain and she can sit and stand but still having difficulty to walk. Objective Objective Vital Signs Date Time Temp Pulse Resp B/P (MAP) Pulse Ox O2 Delivery O2 Flow Rate FiO2 03/06/20 08:00 Room Air 03/06/20 07:00 97.8 85 18 131/54 (79) 96 97.8 Intake and Output 03/06/20 06:59 Intake Total 745 ml Balance 745 ml Intake Oral 695 ml IV Total 50 ml # Voids 3 Physical Exam Physical Exam She continues with tenderness to palpation over left trochanteric bursa and no tenderness to palpation over lumbar area. She is sitting at edge of bed. She continues with lower extremity edema,right >left. Her c-reactive protein and sedimentation rate are elevated. Plan Plan of Care To consider injecting painful left trochanteric bursa,if pain persists. To conrinue present physical and occupational therapy follow up and to rehab or SNF or home with home health when medically stable. Comment Review of Relevant I have reviewed the following items ondina (where applicable) has been applied. Labs Laboratory Tests Test 03/04/20 18:56 03/05/20 09:35 White Blood Count 13.5 x10^3/uL (4.0-11.0) 11.4 x10^3/uL (4.0-11.0) Red Blood Count 3.98 x10^6/uL (3.50-5.40) 3.78 x10^6/uL (3.50-5.40) Hemoglobin 11.3 g/dL (12.0-15.5) 10.8 g/dL (12.0-15.5) Hematocrit 34.5 % (36.0-47.0) 32.7 % (36.0-47.0) Mean Corpuscular Volume 87 fL (79-100) 86 fL (79-100) Mean Corpuscular Hemoglobin 29 pg (25-35) 29 pg (25-35) Mean Corpuscular Hemoglobin Concent 33 g/dL (31-37) 33 g/dL (31-37) Red Cell Distribution Width 14.9 % (11.5-14.5) 14.5 % (11.5-14.5) Platelet Count 364 x10^3/uL (140-400) 368 x10^3/uL (140-400) Neutrophils (%) (Auto) 77 % (31-73) 80 % (31-73) Lymphocytes (%) (Auto) 13 % (24-48) 9 % (24-48) Monocytes (%) (Auto) 7 % (0-9) 7 % (0-9) Eosinophils (%) (Auto) 2 % (0-3) 3 % (0-3) Basophils (%) (Auto) 1 % (0-3) 1 % (0-3) Neutrophils # (Auto) 10.4 x10^3/uL (1.8-7.7) 9.1 x10^3/uL (1.8-7.7) Lymphocytes # (Auto) 1.8 x10^3/uL (1.0-4.8) 1.1 x10^3/uL (1.0-4.8) Monocytes # (Auto) 1.0 x10^3/uL (0.0-1.1) 0.8 x10^3/uL (0.0-1.1) Eosinophils # (Auto) 0.3 x10^3/uL (0.0-0.7) 0.3 x10^3/uL (0.0-0.7) Basophils # (Auto) 0.1 x10^3/uL (0.0-0.2) 0.1 x10^3/uL (0.0-0.2) Erythrocyte Sedimentation Rate 122 (0-25) Activated Partial Thromboplast Time 31 SEC (24-38) Sodium Level 137 mmol/L (136-145) 137 mmol/L (136-145) Potassium Level 3.6 mmol/L (3.5-5.1) 3.4 mmol/L (3.5-5.1) Chloride Level 98 mmol/L (98-107) 100 mmol/L (98-107) Carbon Dioxide Level 28 mmol/L (21-32) 30 mmol/L (21-32) Anion Gap 11 (6-14) 7 (6-14) Blood Urea Nitrogen 32 mg/dL (7-20) 26 mg/dL (7-20) Creatinine 2.3 mg/dL (0.6-1.0) 1.7 mg/dL (0.6-1.0) Estimated GFR (Cockcroft-Gault) 25.2 35.7 BUN/Creatinine Ratio 14 (6-20) Glucose Level 94 mg/dL (70-99) 114 mg/dL (70-99) Calcium Level 9.5 mg/dL (8.5-10.1) 8.5 mg/dL (8.5-10.1) Total Bilirubin 1.0 mg/dL (0.2-1.0) Aspartate Amino Transf (AST/SGOT) 24 U/L (15-37) Alanine Aminotransferase (ALT/SGPT) 32 U/L (14-59) Alkaline Phosphatase 110 U/L (46-116) C-Reactive Protein, Quantitative 243.5 mg/L (0-3.3) Total Protein 8.3 g/dL (6.4-8.2) Albumin 2.8 g/dL (3.4-5.0) Albumin/Globulin Ratio 0.5 (1.0-1.7) Medications Current Medications Ondansetron HCl (Zofran) 4 mg PRN Q8HRS PRN IV NAUSEA/VOMITING; Start 03/04/20 at 19:15; Stop 03/05/20 at 19:14; Status DC Fentanyl Citrate (Fentanyl 2ml Vial) 50 mcg PRN Q1HR PRN IV PAIN Last administered on 03/05/20at 07:35; Start 03/04/20 at 19:15; Stop 03/05/20 at 19:14; Status DC Clindamycin Phosphate 50 ml @ 100 mls/hr Q8HRS IV Last administered on 03/06/20at 06:03; Start 03/04/20 at 21:00 Acetaminophen (Tylenol) 500 mg PRN Q6HRS PRN PO MILD PAIN / TEMP > 100.3'F; Start 03/05/20 at 04:45 Albuterol Sulfate (Ventolin Neb Soln) 2.5 mg PRN Q4HRS PRN NEB SHORTNESS OF BREATH; Start 03/05/20 at 04:45 Furosemide (Lasix) 40 mg DAILY PO Last administered on 03/06/20at 08:43; Start 03/05/20 at 09:00 Non-Formulary Medication 1 ea DAILY PO ; Start 03/05/20 at 09:00; Status Cancel Acetaminophen/ Hydrocodone Bitart (Lortab 7.5/325) 1 tab PRN Q6HRS PRN PO MODERATE - SEVERE PAIN Last administered on 03/05/20at 21:57; Start 03/05/20 at 05 :00 Losartan Potassium (Cozaar) 100 mg DAILY PO Last administered on 03/05/20at 12:52; Start 03/05/20 at 09:00 Hydrochlorothiazide (Hydrodiuril) 25 mg DAILY PO Last administered on 03/06/20at 08:42; Start 03/05/20 at 09:00 Oxycodone/ Acetaminophen (Percocet 10/325) 1 tab PRN Q4HRS PRN PO hip pain Last administered on 03/05/20at 12:48; Start 03/05/20 at 10:15 Fentanyl Citrate (Fentanyl 2ml Vial) 50 mcg PRN Q2HR PRN IVP PAIN; Start 03/05/20 at 10:15 Enoxaparin Sodium (Lovenox 30mg Syringe) 30 mg Q24H SQ Last administered on 03/05/20at 12:52; Start 03/05/20 at 11:00 Iohexol (Omnipaque 240 Mg/ml) 30 ml 1X ONCE PO Last administered on 03/05/20at 10:30; Start 03/05/20 at 10:30; Stop 03/05/20 at 10:31; Status DC Info (CONTRAST GIVEN -- Rx MONITORING) 1 each PRN DAILY PRN MC SEE COMMENTS; Start 03/05/20 at 10:30; Stop 03/07/20 at 10:29 Prednisone (Prednisone) 10 mg DAILY PO Last administered on 03/06/20at 08:43; Start 03/05/20 at 13:00 Pantoprazole Sodium (Protonix) 40 mg DAILYAC PO Last administered on 03/06/20 08:43; Start 03/05/20 at 13:00 Methylprednisolone Acetate (DEPO-Medrol 80MG VIAL) 80 mg 1X ONCE IM Last administered on 03/05/20at 13:45; Start 03/05/20 at 13:45; Stop 03/05/20 at 13:46; Status DC Bupivacaine HCl (Sensorcaine-Mpf 0.25%) 10 ml 1X ONCE IJ Last administered on 03/05/20at 13:45; Start 03/05/20 at 13:45; Stop 03/05/20 at 13:46; Status DC Iohexol (Omnipaque 300 Mg/ml) 50 ml 1X ONCE IJ Last administered on 03/05/20at 13:45; Start 03/05/20 at 13:45; Stop 03/05/20 at 13:46; Status DC Lidocaine HCl (Lidocaine 1% 20ml Vial) 20 ml 1X ONCE INJ Last administered on 03/05/20at 14:45; Start 03/05/20 at 14:45; Stop 03/05/20 at 14:47; Status DC Vitals/I & O Vital Sign - Last 24 Hours 03/05/20 03/05/20 03/05/20 03/05/20 11:48 12:48 12:52 15:38 Temp 99.5 98.9 99.5 98.9 Pulse 103 103 101 Resp 20 20 16 B/P (MAP) 128/77 (94) 128/77 139/70 (93) Pulse Ox 95 97 O2 Delivery Room Air Room Air 03/05/20 03/05/20 03/05/20 03/05/20 19:00 20:00 21:57 23:00 Temp 99.9 98.2 99.9 98.2 Pulse 95 95 Resp 20 20 18 B/P (MAP) 100/50 (67) 120/77 (91) Pulse Ox 95 98 O2 Delivery Room Air Room Air 03/05/20 03/06/20 03/06/20 03/06/20 23:00 03:00 07:00 08:00 Temp 98.7 97.8 98.7 97.8 Pulse 87 85 Resp 18 18 18 B/P (MAP) 111/61 (78) 131/54 (79) Pulse Ox 98 97 96 O2 Delivery Room Air Room Air Room Air Intake and Output 03/05/20 03/05/20 03/06/20 14:59 22:59 06:59 Intake Total 255 ml 50 ml 440 ml Balance 255 ml 50 ml 440 ml DANIAL WEBB MD March 06, 2020 10:09
--- NOTE | 2020-03-06 10:28 | PDOC ---
PROGRESS NOTES Subjective Subjective feels better today Objective Objective Vital Signs Date Time Temp Pulse Resp B/P (MAP) Pulse Ox O2 Delivery O2 Flow Rate FiO2 03/06/20 08:00 Room Air 03/06/20 07:00 97.8 85 18 131/54 (79) 96 97.8 Intake and Output 03/06/20 07:00 Intake Total 745 ml Balance 745 ml Intake Oral 695 ml IV Total 50 ml # Voids 3 Physical Exam Abdomen: Soft, No tenderness Heart: Regular rate Extremities: Other (She has mild erythema in her calves bilaterally. She does have edema around her feet and ankles bilaterally) General: Alert, Oriented X3 HEENT: Atraumatic, EOMI Lungs: Other (Respirations are unlabored with symmetric chest rise) MUSCULOSKELETAL: Other (No pain with passive or active range of motion in her hip. No tenderness laterally.) Neuro: Normal speech, Strength at 5/5 X4 ext, Sensation intact Psych/Mental Status: Mental status NL, Mood NL Skin: Other (rt leg cellulits) Assessment Assessment FINAL IMPRESSION: 1. Severe hip pain, not able to move, not sure the reason, will do workup. 2. Right leg cellulitis, on clindamycin. 3. Chronic kidney disease stage 3. 4. Morbid obesity. 5. History of colon cancer, had a surgery and chemo in 2012. Last colon check was 3 years ago. PLAN: ct chest -ve ct abd-ve ct pelvis + diverticulosis ct lumbar spine djd ct hip -ve for fracture. venous doppler neg for DVT arterial doppler dec blood flow cortisone inj to lt hip joint given ,pt feels better cr 1.7 down pot 3.4 replace spoke with rehab. sed rate and c reactive high ,Arthitis and cellulits as cause. At this time, the patient was admitted to the hospital. We will start on clindamycin for cellulitis, venous Doppler of lower extremities. We will also have CT of the chest, abdomen and pelvis because of history of colon cancer, rule out any recurrence and also CT of the lumbar spine as well as left hip including pelvis to rule out any metastasis. We will also have orthopedic consult and also rehab consult. The patient has chronic kidney disease as seen by Renal. We will hold off at this point and also Oncology will hold off at this point until we get the results of CAT scan. Comment Review of Relevant I have reviewed the following items ondina (where applicable) has been applied. Medications Current Medications Bupivacaine HCl (Sensorcaine-Mpf 0.25%) 10 ml 1X ONCE IJ Last administered on 03/05/20at 13:45; Start 03/05/20 at 13:45; Stop 03/05/20 at 13:46; Status DC Enoxaparin Sodium (Lovenox 30mg Syringe) 30 mg Q24H SQ Last administered on 03/05/20at 12:52; Start 03/05/20 at 11:00 Info (CONTRAST GIVEN -- Rx MONITORING) 1 each PRN DAILY PRN MC SEE COMMENTS; Start 03/05/20 at 10:30; Stop 03/07/20 at 10:29 Iohexol (Omnipaque 240 Mg/ml) 30 ml 1X ONCE PO Last administered on 03/05/20at 10:30; Start 03/05/20 at 10:30; Stop 03/05/20 at 10:31; Status DC Iohexol (Omnipaque 300 Mg/ml) 50 ml 1X ONCE IJ Last administered on 03/05/20at 13:45; Start 03/05/20 at 13:45; Stop 03/05/20 at 13:46; Status DC Lidocaine HCl (Lidocaine 1% 20ml Vial) 20 ml 1X ONCE INJ Last administered on 03/05/20at 14:45; Start 03/05/20 at 14:45; Stop 03/05/20 at 14:47; Status DC Methylprednisolone Acetate (DEPO-Medrol 80MG VIAL) 80 mg 1X ONCE IM Last administered on 03/05/20at 13:45; Start 03/05/20 at 13:45; Stop 03/05/20 at 13:46; Status DC Pantoprazole Sodium (Protonix) 40 mg DAILYAC PO Last administered on 03/06/20at 08:43; Start 03/05/20 at 13:00 Prednisone (Prednisone) 10 mg DAILY PO Last administered on 03/06/20at 08:43; Start 03/05/20 at 13:00 Vitals/I & O Vital Sign - Last 24 Hours 03/05/20 03/05/20 03/05/20 03/05/20 11:48 12:48 12:52 15:38 Temp 99.5 98.9 99.5 98.9 Pulse 103 103 101 Resp 20 20 16 B/P (MAP) 128/77 (94) 128/77 139/70 (93) Pulse Ox 95 97 O2 Delivery Room Air Room Air 03/05/20 03/05/20 03/05/20 03/05/20 19:00 20:00 21:57 23:00 Temp 99.9 98.2 99.9 98.2 Pulse 95 95 Resp 20 20 18 B/P (MAP) 100/50 (67) 120/77 (91) Pulse Ox 95 98 O2 Delivery Room Air Room Air 03/05/20 03/06/20 03/06/20 03/06/20 23:00 03:00 07:00 08:00 Temp 98.7 97.8 98.7 97.8 Pulse 87 85 Resp 18 18 18 B/P (MAP) 111/61 (78) 131/54 (79) Pulse Ox 98 97 96 O2 Delivery Room Air Room Air Room Air Intake and Output 03/05/20 03/05/20 03/06/20 15:00 23:00 07:00 Intake Total 255 ml 50 ml 440 ml Balance 255 ml 50 ml 440 ml ALESSIA JOHNSTON MD March 06, 2020 10:28
[2020-03-06] MEDS ORDERED: POTASSIUM CHLORIDE 20 MEQ TABLET.ER. PO ONE (10:30)
[2020-03-06] MEDS: oxyCODONE/APAP 10/325 1 TAB TABLET PO PRN (10:45)
[2020-03-06 11:00] VITALS: BP 124/66
[2020-03-06] MEDS ORDERED: POTASSIUM CHLORIDE 10 MEQ TABLET.ER. PO ONE (11:30)
[2020-03-06 15:00] VITALS: BP 121/63
[2020-03-06] MEDS: ENOXAPARIN 40 MG/0.4 ML SYRINGE. SQ SCH (16:58)
[2020-03-06 19:00] VITALS: BP 130/61
[2020-03-06 23:00] VITALS: BP 148/84
[2020-03-06] MEDS: HYDROcodone/APAP 7.5/325MG 1 TAB TABLET PO PRN (23:20)
[2020-03-07] MEDS: CLINDAMYCIN 600MG PREMIX 50 ML IV SCH ×3 (00:19→14:00)
[2020-03-07 03:00] VITALS: BP 138/63
--- NOTE | 2020-03-07 04:06 | NUR ---
Pt schedule 2200 Clindamycin was not administered until after midnight as last dose was administered late. RN called and verified with Pharmacy on when RN should hang next dose.
[2020-03-07 04:40] LABS: BASO # 0.1 x10^3/uL (0.0-0.2); BASO % 1 % (0-3); EOS % 0 % (0-3); HEMATOCRIT 35.9 % (36.0-47.0); HEMOGLOBIN 11.6 g/dL (12.0-15.5); LYMPH # 1.5 x10^3/uL (1.0-4.8); LYMPH % 7 % (24-48); MEAN CORPUSCULAR HEMOGLOBIN 28 pg (25-35); MEAN CORPUSCULAR HGB CONC 32 g/dL (31-37); MEAN CORPUSCULAR VOLUME 87 fL (79-100); MONO % 5 % (0-9); NEUT # 19.3 x10^3/uL (1.8-7.7); NEUT % 88 % (31-73); PLATELET COUNT 516 x10^3/uL (140-400); RED BLOOD COUNT 4.11 x10^6/uL (3.50-5.40); RED CELL DISTRIBUTION WIDTH 14.9 % (11.5-14.5)
[2020-03-07 05:04] LABS: CALCIUM 9.3 mg/dL (8.5-10.1); CREATININE 2.2 mg/dL (0.6-1.0); GFR 26.5; POTASSIUM 4.5 mmol/L (3.5-5.1)
[2020-03-07] MEDS: HYDROcodone/APAP 7.5/325MG 1 TAB TABLET PO PRN ×2 (05:32→10:34)
[2020-03-07 07:59] VITALS: BP 152/83
[2020-03-07 09:10] LABS: % BANDS 11 % (0-9); % LYMPHS 7 % (24-48); % MONOS 3 % (0-10); % SEGS 79 % (35-66)
[2020-03-07 09:13] LABS: PLT ESTIMATE INCREASED (ADEQUATE); TOXIC GRANULATION SLIGHT
[2020-03-07] MEDS: LOSARTAN POTASSIUM 50 MG TABLET. PO SCH (10:32)
[2020-03-07] MEDS: hydroCHLOROthiazide 25 MG TABLET PO SCH (10:33)
[2020-03-07] MEDS: predniSONE 10 MG TABLET PO SCH (10:34)
[2020-03-07] MEDS: FUROSEMIDE 40 MG TABLET. PO SCH (10:34)
[2020-03-07] MEDS: PANTOPRAZOLE 40 MG TABLET.DR. PO SCH (10:34)
[2020-03-07] MEDS: ENOXAPARIN 40 MG/0.4 ML SYRINGE. SQ SCH (10:37)
[2020-03-07 11:59] VITALS: BP 97/61
--- NOTE | 2020-03-07 12:12 | PDOC ---
PROGRESS NOTES Subjective Subjective pt feels good,want to go home Objective Objective Vital Signs Date Time Temp Pulse Resp B/P (MAP) Pulse Ox O2 Delivery O2 Flow Rate FiO2 03/07/20 10:34 20 Room Air 03/07/20 10:32 87 152/83 03/07/20 07:59 97.9 96 97.9 Intake and Output 03/07/20 06:59 Intake Total 820 ml Balance 820 ml Intake Oral 720 ml IV Total 100 ml Physical Exam Abdomen: Soft, No tenderness Heart: Regular rate Extremities: Other (She has mild erythema in her calves bilaterally. She does have edema around her feet and ankles bilaterally) General: Alert, Oriented X3 HEENT: Atraumatic, EOMI Lungs: Other (Respirations are unlabored with symmetric chest rise) MUSCULOSKELETAL: Other (No pain with passive or active range of motion in her hip. No tenderness laterally.) Neuro: Normal speech, Strength at 5/5 X4 ext, Sensation intact Psych/Mental Status: Mental status NL, Mood NL Skin: Other (rt leg cellulits) Assessment Assessment FINAL IMPRESSION: 1. Severe hip pain, not able to move, not sure the reason, will do workup. 2. Right leg cellulitis, on clindamycin. 3. Chronic kidney disease stage 3. 4. Morbid obesity. 5. History of colon cancer, had a surgery and chemo in 2012. Last colon check was 3 years ago. PLAN: ct chest -ve ct abd-ve ct pelvis + diverticulosis,gall stones, 2 cm cyst in kidney rt ct lumbar spine djd ct hip -ve for fracture. venous doppler neg for DVT arterial doppler dec blood flow cortisone inj to lt hip joint given ,pt feels better cr 2.3 went up pot 4.4 wbc 22 high due to steroids spoke with rehab. sed rate and c reactive high ,Arthitis and cellulits as cause. At this time, the patient was admitted to the hospital. We will start on clindamycin for cellulitis, venous Doppler of lower extremities. We will also have CT of the chest, abdomen and pelvis because of history of colon cancer, rule out any recurrence and also CT of the lumbar spine as well as left hip including pelvis to rule out any metastasis. We will also have orthopedic consult and also rehab consult. The patient has chronic kidney disease as seen by Renal. We will hold off at this point and also Oncology will hold off at this point until we get the results of CAT scan. Comment Review of Relevant I have reviewed the following items ondina (where applicable) has been applied. Labs Laboratory Tests Test 03/07/20 04:30 White Blood Count 22.0 x10^3/uL (4.0-11.0) Red Blood Count 4.11 x10^6/uL (3.50-5.40) Hemoglobin 11.6 g/dL (12.0-15.5) Hematocrit 35.9 % (36.0-47.0) Mean Corpuscular Volume 87 fL (79-100) Mean Corpuscular Hemoglobin 28 pg (25-35) Mean Corpuscular Hemoglobin Concent 32 g/dL (31-37) Red Cell Distribution Width 14.9 % (11.5-14.5) Platelet Count 516 x10^3/uL (140-400) Neutrophils (%) (Auto) 88 % (31-73) Lymphocytes (%) (Auto) 7 % (24-48) Monocytes (%) (Auto) 5 % (0-9) Eosinophils (%) (Auto) 0 % (0-3) Basophils (%) (Auto) 1 % (0-3) Neutrophils # (Auto) 19.3 x10^3/uL (1.8-7.7) Lymphocytes # (Auto) 1.5 x10^3/uL (1.0-4.8) Monocytes # (Auto) 1.0 x10^3/uL (0.0-1.1) Eosinophils # (Auto) 0.0 x10^3/uL (0.0-0.7) Basophils # (Auto) 0.1 x10^3/uL (0.0-0.2) Segmented Neutrophils % 79 % (35-66) Band Neutrophils % 11 % (0-9) Lymphocytes % 7 % (24-48) Monocytes % 3 % (0-10) Toxic Granulation Slight Platelet Estimate Increased (ADEQUATE) Sodium Level 137 mmol/L (136-145) Potassium Level 4.5 mmol/L (3.5-5.1) Chloride Level 98 mmol/L (98-107) Carbon Dioxide Level 30 mmol/L (21-32) Anion Gap 9 (6-14) Blood Urea Nitrogen 45 mg/dL (7-20) Creatinine 2.2 mg/dL (0.6-1.0) Estimated GFR (Cockcroft-Gault) 26.5 Glucose Level 141 mg/dL (70-99) Calcium Level 9.3 mg/dL (8.5-10.1) Medications Current Medications Enoxaparin Sodium (Lovenox 40mg Syringe) 40 mg BID SQ Last administered on 03/07/20at 10:37; Start 03/06/20 at 21:00 Lactobacillus Rhamnosus (Culturelle) 1 cap BID PO ; Start 03/07/20 at 21:00 Vitals/I & O Vital Sign - Last 24 Hours 03/06/20 03/06/20 03/06/20 03/06/20 15:00 19:00 20:00 23:00 Temp 98.9 98.5 99.2 98.9 98.5 99.2 Pulse 103 91 97 Resp 16 18 18 B/P (MAP) 121/63 (82) 130/61 (84) 148/84 (105) Pulse Ox 97 97 96 O2 Delivery Room Air Room Air Room Air Room Air 03/06/20 03/07/20 03/07/20 03/07/20 23:20 00:27 03:00 05:32 Temp 98.3 98.3 Pulse 87 Resp 18 B/P (MAP) 138/63 (88) Pulse Ox 97 97 96 96 O2 Delivery Room Air Room Air Room Air Room Air 03/07/20 03/07/20 03/07/20 03/07/20 06:31 07:59 10:32 10:34 Temp 97.9 97.9 Pulse 87 87 Resp 20 B/P (MAP) 152/83 (106) 152/83 Pulse Ox 96 96 O2 Delivery Room Air Room Air Room Air Intake and Output 03/06/20 03/06/20 03/07/20 14:59 22:59 06:59 Intake Total 180 ml 60 ml 580 ml Balance 180 ml 60 ml 580 ml ALESSIA JOHNSTON MD March 07, 2020 12:12
[2020-03-07] MEDS ORDERED: OXYC-325 PO (12:17)
[2020-03-07] MEDS ORDERED: FURO40TA4 PO (12:17)
[2020-03-07] MEDS ORDERED: LOSA-73 PO (12:17)
[2020-03-07] MEDS ORDERED: CLIN300C8 PO (12:17)
[2020-03-07] MEDS ORDERED: PRED-220 PO (12:17)
--- NOTE | 2020-03-07 12:23 | PDOC ---
Provider Note Provider Note Discharge summary dictated.#[id number]. ALESSIA JOHNSTON MD March 07, 2020 12:23
--- NOTE | 2020-03-07 13:56 | DS ---
DATE OF DISCHARGE: 03/07/2020 REASON FOR ADMISSION TO THE HOSPITAL: 1. Right leg cellulitis. 2. Unable to put weight on the left hip. CONSULTATIONS: 1. Dr. Patterson. 2. Dr. eLblanc. PROCEDURES DONE: 1. CT of the chest. 2. CT of the abdomen. 3. CT of the pelvis. 4. Venous Doppler of lower extremities. 5. Arterial Doppler of lower extremities. 6. Cortisone injection into the left hip by Interventional Radiology. HOSPITAL COURSE: The patient is a 74-year-old female. She has history of obesity, BMI 42. She has a history of colon cancer in 2013. She had a partial colostomy at that time which was revised. She was having severe pain in the left hip, not able to bear weight. She is able to ambulate with a cane. She also developed cellulitis of right lower extremity, was admitted to the hospital. The patient has chronic kidney disease stage 3. The patient had a venous Doppler negative for DVT, was given clindamycin. The patient had a CT of the chest because of colon cancer, make sure there is no metastasis that came negative. CT of the abdomen shows gallstones, diverticulosis in the sigmoid colon. There is a right adrenal nodule 2.8 cm and 2 cm kidney. There is a cyst and the patient also had a nonspecific lymph nodes mostly in the right groin probably from the cellulitis. The patient had a lumbar spine shows degenerative arthritis. The patient had arterial Doppler shows decreased blood flow, but not compromised at this point. Had a CT of the hip, left hip did not show any fracture. The patient was seen by rehab and orthopedic. The patient was recommended cortisone injection into the left hip, was given by Interventional Radiology. The patient was put on prednisone and the patient was improved with time and she was discharged. Her creatinine around 2.3 looks like her baseline, white count slightly went up secondary to prednisone and the patient was given clindamycin for leg cellulitis for 7 days, prednisone once a day for 5 days. Follow with PCP in 1 week and the patient recommended followup CT of the abdomen in 3 months to follow up on the kidney and adrenal cyst and also a vascular specialist if continues to have problem with pain in lower extremities. ALESSIA OJHNSTON MD DR: FABIO/kalpesh JOB#: [id number] / [id number] AFIA Gallardo
--- NOTE | 2020-03-07 15:00 | NUR ---
Discharge teaching completed. IV site discontinued without difficulty. Pt states that she understands her home medications and follow up instructions. She was discharged to home; escorted out by staff to family private vehicle.
[2020-03-07] MEDS ORDERED: LACTOBACILLUS RHAMNOSUS GG 1 CAPSULE. PO SCH (21:00)
== END 2020-03-07 15:30 | disposition home or self-care (01) | DRG 603 ==
LOC: ER 18:17 → 4 NORTH 19:10
PROVIDERS: ADMIT Internal Medicine; ATTEND Internal Medicine
DX: L03.115 Cellulitis of right lower limb (principal); Z68.41 Body mass index [BMI] 40.0-44.9, adult; L03.116 Cellulitis of left lower limb; E27.8 Other specified disorders of adrenal gland; E66.01 Morbid (severe) obesity due to excess calories; I12.9 Hypertensive chronic kidney disease with stage 1 through stage 4 chronic kidney disease, or unspecified chronic kidney disease; I89.0 Lymphedema, not elsewhere classified; K21.9 Gastro-esophageal reflux disease without esophagitis; K57.30 Diverticulosis of large intestine without perforation or abscess without bleeding; K80.20 Calculus of gallbladder without cholecystitis without obstruction; M17.0 Bilateral primary osteoarthritis of knee; M47.816 Spondylosis without myelopathy or radiculopathy, lumbar region; M85.80 Other specified disorders of bone density and structure, unspecified site; N18.3 Chronic kidney disease, stage 3 (moderate); Z88.5 Allergy status to narcotic agent; Z88.8 Allergy status to other drugs, medicaments and biological substances; Z88.1 Allergy status to other antibiotic agents; Z86.711 Personal history of pulmonary embolism; Z85.038 Personal history of other malignant neoplasm of large intestine; Z92.21 Personal history of antineoplastic chemotherapy; Z86.73 Personal history of transient ischemic attack (TIA), and cerebral infarction without residual deficits; Z82.49 Family history of ischemic heart disease and other diseases of the circulatory system
CPT/HCPCS: 20610; 36415; 71250; 72131; 73502; 73700; 74176; 77002; 80048; 80053; 85007; 85025; 85651; 85730; 86140; 93923; 93970; 99285; J1040; J1650; J3010; J3490; J7512; Q9966; Q9967; 97165-GO; G0378

== ENCOUNTER 2020-05-20 13:09 | Emergency (ER) | payer OTHER ==
[~2020-05-20] VITALS: Ht 157.5 cm; Wt 121.8 kg
[~2020-05-20 13:09] MED LIST: CLIN300C8 PO; FURO40TA4 PO; LOSA-73 PO; OXYC-325 PO; PRED-220 PO
[2020-05-20] MEDS ORDERED: DEXAMETHASONE SOD PHOS 20 MG/5 ML VIAL. IM ONE (14:00)
[2020-05-20] MEDS ORDERED: ORPHENADRINE CITRATE 60 MG/2 ML VIAL. IM ONE (14:00)
[2020-05-20] MEDS ORDERED: PRED20TA PO (15:32)
[2020-05-20] MEDS ORDERED: ORPH100T PO (15:32)
--- NOTE | 2020-05-20 15:33 | PHYS DOC ---
Past Medical History Past Medical History: Arthritis, Hypertension Additional Past Medical Histor: COLON CX, COLON CX, PE'S, CELLULITIS, CKD (CYRUS DIAZ APRN) Additional Past Surgical Histo: COLON RESECTION, HERNIA (CYRUS DIAZ APRN) Smoking Status: Never Smoker Alcohol Use: None (CYRUS DIAZ APRN) General Adult EDM: Chief Complaint: HIP PAIN HPI: HPI: Patient is a 74 year old AA female, accompanied by her daughter who presents to the emergency department with complaints of pain in her left hip that is chronic and has been flared up again for the last 2 days. Patient states of the last time she was admitted to the hospital Dr. moore really gave her a shot in the hip and that it helped. She denies any new injury or fall. Patient reports history of arthritis but denies any redness, warmth, or swelling of the joints of the left leg. Patient denies any saddle anesthesia, or loss of bowel/bladder control, she denies any back pain. She reports that the pain increases with movement and weightbearing. She denies pain at rest however if she moves the pain is a 10 out of 10. She states that the pain radiates from her hip all the way down to her ankle. (CYRUS DIAZ APRN) Review of Systems: Review of Systems: Constitutional: Denies fever or chills. [] Musculoskeletal: Denies back pain; see HPI Integument: Denies rash. [] Neurologic: Denies headache, focal weakness or sensory changes. [] Lymphatic: Denies swollen glands. [] Psychiatric: Denies depression or anxiety. [] (CYRUS DIAZ CONCHE OPERATOR) Heart Score: Risk Factors: Risk Factors: DM, Current or recent (<one month) smoker, HTN, HLP, family history of CAD, obesity. Risk Scores: Score 0 - 3: 2.5% MACE over next 6 weeks - Discharge Home Score 4 - 6: 20.3% MACE over next 6 weeks - Admit for Clinical Observation Score 7 - 10: 72.7% MACE over next 6 weeks - Early Invasive Strategies (CYRUS DIAZ APRN) Current Medications: Current Medications Medications (Trade) Dose Ordered Sig/Estee Start Time Stop Time Status Last Admin Dose Admin Dexamethasone Sodium Phosphate (Decadron) 10 mg 1X ONCE 05/20/20 14:00 05/20/20 14:01 DC 05/20/20 14:25 10 MG Orphenadrine Citrate (Norflex) 60 mg 1X ONCE 05/20/20 14:00 05/20/20 14:01 DC 05/20/20 14:25 60 MG (CYRUS DIAZ APRN) Allergies: Allergies: Allergies Coded Allergies Type Severity Reaction Last Updated Verified doxycycline Allergy Mild RASH 03/04/20 Yes hydralazine Allergy Mild RASH 03/04/20 Yes morphine Allergy Mild RASH 03/04/20 Yes (CYRUS DIAZ APRN) Physical Exam: PE: Constitutional: Well developed, well nourished, no acute distress, non-toxic appearance. [] HENT: Normocephalic, atraumatic, bilateral external ears normal, nose normal. [] Eyes: PERRLA, EOMI, conjunctiva normal, no discharge. [] Neck: Normal range of motion, no stridor. [] Cardiovascular:Heart rate regular rhythm Lungs & Thorax: Respirations even and unlabored, no retractions, no respiratory distress Skin: Warm, dry, no erythema, no rash. [] Extremities: Right hip: No bony tenderness no cyanosis, ROM intact, no edema, increased pain with left straight leg lift[] Neurologic: Alert and oriented X 3, no focal deficits noted. [] Psychologic: Affect normal, judgement normal, mood normal. [] (CYRUS DIAZ APRN) Current Patient Data: Vital Signs: Vital Signs Date Time Temp Pulse Resp B/P (MAP) Pulse Ox O2 Delivery O2 Flow Rate FiO2 05/20/20 13:35 98.4 96 18 150/71 (97) 98 Room Air 98.4 (CYRUS DIAZ APRN) EKG: EKG: [] (CYRUS DIAZ APRN) Radiology/Procedures: Radiology/Procedures: [] (CYRUS DIAZ APRN) Course & Med Decision Making: Course & Med Decision Making Pertinent Labs and Imaging studies reviewed. (See chart for details) pt given IM norflex and prednisone Pt reports reduced pain after medication. Recommend follow up with Dr. Billings. Prescriptions written for prednisone taper and orphenadrine. [] (CYRUS DIAZ APRN) Course & Med Decision Making Staff Physician Addendum: I was working in the ER during the course of this patient's visit. I was available for consultation as needed, but I was not directly involved in the care of this patient. (ZULY FLEMING MD) Dragon Disclaimer: Dragsailaja Disclaimer: This electronic medical record was generated, in whole or in part, using a voice recognition dictation system. (CYRUS DIAZ APRN) Departure Departure Impression: Primary Impression: Left sided sciatica Disposition: HOME, SELF-CARE Condition: STABLE Referrals: AFIA DE LUNA (PCP) PARDEEP BILLINGS II, MD Patient Instructions: Sciatica, [id number] Additional Instructions: Fill the prescription(s) and use as directed. Apply heat or ice for to sore areas as needed for comfort. Activity as tolerated. Follow up with your primary care doctor this week if symptoms persist, return to the ER if symptoms worsen. Scripts Prednisone (PREDNISONE) 20 Mg Tablet 1 TAB PO UD for 12 Days, #15 TAB 2 tabs by mouth days 1,2,3 then 1.5 tabs by mouth days 4,5,6 then 1 tab by mouth days 7,8,9 then 0.5 tab by mouth day 10,11,12 Prov: CYRUS DIAZ APRN 05/20/20 Orphenadrine Citrate (ORPHENADRINE CITRATE) 100 Mg Tablet.er 1 TAB PO BID PRN for PAIN for 10 Days, #20 TAB 0 Refills Prov: CYRUS DIAZ APRN 05/20/20 Justicifation of Admission Dx: Justifications for Admission: Justification of Admission Dx: N/A (CYRUS DIAZ APRN) CYRUS DIAZ APRN May 20, 2020 15:33 ZULY FLEMING MD May 21, 2020 18:25
[2020-05-20 15:38] VITALS: BP 145/65
== END 2020-05-20 15:40 | disposition home or self-care (01) ==
LOC: ER 13:09
DX: M54.32 Sciatica, left side (principal); I12.9 Hypertensive chronic kidney disease with stage 1 through stage 4 chronic kidney disease, or unspecified chronic kidney disease; N18.9 Chronic kidney disease, unspecified; Z98.890 Other specified postprocedural states
CPT/HCPCS: 96372; 99284; J1100; J2360

== ENCOUNTER 2020-12-03 07:19 | Inpatient (IN) | payer MEDICARE, OTHER ==
[~2020-12-03] VITALS: Ht 157.5 cm; Wt 110.7 kg
[~2020-12-03 07:19] MED LIST changes: -CLIN300C8 PO; +CLIN300C9 PO; +ORPH100T PO; +PRED20TA PO
[2020-12-03] MEDS ORDERED: DEXAMETHASONE SOD PHOS 20 MG/5 ML VIAL. IM ONE (07:45)
--- NOTE | 2020-12-03 07:45 | PHYS DOC ---
Past Medical History Past Medical History: Arthritis, Hypertension Additional Past Medical Histor: COLON CX, COLON CX, PE'S, CELLULITIS, CKD Past Surgical History: Other Additional Past Surgical Histo: COLON RESECTION, HERNIA Smoking Status: Never Smoker Alcohol Use: None General Adult EDM: Chief Complaint: HIP PAIN HPI: HPI: 75-year-old female past medical history significant for hypertension, arthritis, ckd and h/o colon cancer (in remission), presents the ED with complaints of left hip pain that radiates down the back of her leg that started 2 days ago, worse with hip flexion. Patient reports the pain is so bad she cannot get out of bed - is not drinking much water and "my urine is dark." Daughter has difficulty assisted pt due to habitus/obesity and reports "she's dehydrated." Patient was discharged from [facility] 1 week ago after being admitted for a small bowel obstruction. Has a history of an ileus after bowel resection from colon cancer, h/o multiple hernia surgeries. Pt recently tested negative for Covid. Denies any falls or trauma. States she has had sciatica before and this feels the same. Reports postnasal drip causing a dry cough. No associated chest pain, dyspnea, fever, chills, headache, neck stiffness, productive cough, dysuria, hematuria, abdominal pain, suprapubic pressure, increased urinary frequency or urgency or flank pain. Review of Systems: Review of Systems: Constitutional: Denies fever or chills. [] Eyes: Denies change in visual acuity or eye drainage HENT: Denies nasal congestion or sore throat. [] Respiratory: Denies hemoptysis or shortness of breath. [] Cardiovascular: Denies chest pain or edema. [] GI: Denies abdominal pain, nausea, vomiting, bloody stools or diarrhea. [] : Denies dysuria or hematuria Musculoskeletal: Denies midline back pain, joint swelling Integument: Denies rash or diaphoresis Neurologic: Denies headache, neck stiffness, focal weakness or sensory change s. [] Endocrine: Denies polyuria or polydipsia. [] Lymphatic: Denies swollen glands. [] Psychiatric: Denies depression or anxiety. [] Heart Score: Risk Factors: Risk Factors: DM, Current or recent (<one month) smoker, HTN, HLP, family history of CAD, obesity. Risk Scores: Score 0 - 3: 2.5% MACE over next 6 weeks - Discharge Home Score 4 - 6: 20.3% MACE over next 6 weeks - Admit for Clinical Observation Score 7 - 10: 72.7% MACE over next 6 weeks - Early Invasive Strategies Allergies: Allergies: Allergies Coded Allergies Type Severity Reaction Last Updated Verified doxycycline Allergy Mild RASH 03/04/20 Yes hydralazine Allergy Mild RASH 03/04/20 Yes morphine Allergy Mild RASH 03/04/20 Yes Physical Exam: PE: Constitutional: Well developed, well nourished, no acute distress-surprised to hear her temperature is 100.3, non-toxic appearance. HENT: Normocephalic, atraumatic, dry mucous membranes Eyes: EOMI, conjunctiva normal, no discharge. Neck: Normal range of motion, supple, Cardiovascular: S1/2 present, mild tachycardia Lungs & Thorax: Speaking in full sentences, bilateral equal chest rise, no tachypnea or increased work of breathing Abdomen: soft, no tenderness, abdominal binder on for support-pt is obese but carries extra weight in her abdomen, pt requires assistance from wheelchair to stretcher-significant discomfort when transferring Skin: Warm, dry, no erythema, no rash. [] Back: No tenderness, no CVA tenderness. [] Extremities: No tenderness, no cyanosis, no edema, left hip ttp-worse w/straight leg Neurologic: Alert and oriented X 3, normal motor function, normal sensory function, no focal deficits noted. [] Psychologic: Affect normal, judgement normal, mood normal. [] Current Patient Data: Vital Signs: Vital Signs Date Time Temp Pulse Resp B/P (MAP) Pulse Ox O2 Delivery O2 Flow Rate FiO2 12/03/20 07:28 100.3 110 18 157/89 (111) 96 Room Air 100.3 EKG: EKG: sinus tachycardia 105 bpm, NAD, QTc 491, questionable TWI III, no GATO/STD Radiology/Procedures: Radiology/Procedures: IMAGING REPORT Signed PATIENT: SHAMIKA BEAR ACCOUNT: [id number] : 1945 LOCATION: ER AGE: 75 SEX: F EXAM STATUS: REG ER ORD. PHYSICIAN: DAVID US DO REASON: hip pain with fever, no injury PROCEDURE: PORTABLE CHEST 1V Exam performed: X-ray one view chest and one view pelvis with left hip. HISTORY: Left hip pain and fever. DATE OF SERVICE: 12/03/2020. COMPARISON: None available FINDINGS: Single AP upright portable view of the chest demonstrates borderline cardiomegaly. The pulmonary vascularity is mildly congested. No focal infiltrates, effusion or pneumothorax is seen. Single view pelvis with AP and frog-leg lateral view of the left hip demonstrates mild degenerative changes involving bilateral hips. There is no acute fracture or dislocation. No soft tissue swelling or foreign body seen. IMPRESSION: 1. Borderline cardiomegaly with coarse perihilar interstitial markings likely chronic changes or mild pulmonary vascular congestion. 2. Early degenerative changes involving bilateral hips. No acute abnormality seen in the left hip. Electronically signed by: Theresa Patino MD (12/03/2020 9:06 AM) [id number] DICTATED and SIGNED BY: THERESA PATINO MD DATE: 12/03/20 [id number] Course & Med Decision Making: Course & Med Decision Making Pertinent Labs and Imaging studies reviewed. (See chart for details) Concern for sepsis secondary to urinary tract infection in the setting of acute on chronic kidney disease. Labs show leukocytosis slightly improved from March 2020 with 1 band. No lactic acidosis. Patient with significant discomfort of her left hip such that she can no longer bear weight. Was here in March and had a steroid hip injection by Dr. Gamez that resolved her symptoms. Patient accepted for admission for further medical management Dr. Orourke. Patient stable at time of admission. Will place Ortho consult. I have spoken with the patient and/or caregivers. I have explained the patient's condition, diagnosis and treatment plan based on the information available to me at this time. I have answered the patient's and/or caregivers questions and answered any concerns. The patient and/or caregivers have as good an understanding of the patient's diagnosis, condition and treatment plan as can be expected at this point. The patient has been stabilized within the capability of the emergency department. The patient will be transported for further care and management or will be moved to an observation or inpatient service. I have communicated with the staff or medical practitioner taking over this patient's care. Joon Disclaimer: Joon Disclaimer: This electronic medical record was generated, in whole or in part, using a voice recognition dictation system. Departure Departure Impression: Primary Impression: Sepsis Additional Impressions: UTI (urinary tract infection) Acute on chronic renal failure Left hip pain Disposition: 09 ADMITTED INPT THIS HOSP Admitting Physician: Fortunato Garnett Condition: STABLE Referrals: AFIA DE LUNA (PCP) DAVID US DO Dec 03, 2020 07:44
[2020-12-03] MEDS ORDERED: fentaNYL PF VIAL 100 MCG/2 ML VIAL IVP ONE (08:00)
[2020-12-03] MEDS ORDERED: DEXAMETHASONE SOD PHOS 20 MG/5 ML VIAL. IV ONE (08:00)
[2020-12-03] MEDS ORDERED: IV NORMAL SALINE 1000ML BAG 1,000 ML IV ONE (08:00)
--- NOTE | 2020-12-03 08:19 | EKG ---
[facility] [address] [place] [address] Test Date: 2020-12-03 Test Time: 08:02:22 Pat Name: SHAMIKA BEAR Department: Room: Gender: F Film Or Videotape Editor: : 1945 Requested By: DAVID US Order Number: [id number] Reading MD: Measurements Intervals [place] Rate: 105 P: 46 AR: 102 QRS: 6 QRSD: 102 T: 22 QT: 368 QTc: 491 Interpretive Statements SINUS TACHYCARDIA VENTRICULAR PREMATURE COMPLEX(ES) ATRIAL PREMATURE COMPLEX(ES) ABNORMAL ECG RI6.02 No previous ECG available for comparison
[2020-12-03 08:23] LABS: BASO % 0 % (0-3); EOS # 0.1 x10^3/uL (0.0-0.7); EOS % 1 % (0-3); HEMATOCRIT 41.9 % (36.0-47.0); HEMOGLOBIN 13.7 g/dL (12.0-15.5); LYMPH # 1.5 x10^3/uL (1.0-4.8); LYMPH % 8 % (24-48); MEAN CORPUSCULAR HEMOGLOBIN 28 pg (25-35); MEAN CORPUSCULAR HGB CONC 33 g/dL (31-37); MEAN CORPUSCULAR VOLUME 87 fL (79-100); MONO # 1.2 x10^3/uL (0.0-1.1); MONO % 6 % (0-9); NEUT # 16.3 x10^3/uL (1.8-7.7); NEUT % 85 % (31-73); PLATELET COUNT 300 x10^3/uL (140-400); RED BLOOD COUNT 4.83 x10^6/uL (3.50-5.40); RED CELL DISTRIBUTION WIDTH 13.9 % (11.5-14.5); WHITE BLOOD COUNT 19.1 x10^3/uL (4.0-11.0)
[2020-12-03 08:29] LABS: CALCIUM 9.4 mg/dL (8.5-10.1); GFR 18.5; POTASSIUM 3.2 mmol/L (3.5-5.1)
[2020-12-03 08:35] LABS: ALBUMIN 3.4 g/dL (3.4-5.0); ALBUMIN/GLOBULIN RATIO 0.7 (1.0-1.7); TOTAL BILIRUBIN 0.7 mg/dL (0.2-1.0); TOTAL PROTEIN 8.4 g/dL (6.4-8.2)
[2020-12-03 08:36] LABS: BILIRUBIN,URINE SMALL (NEG); CLARITY,URINE CLOUDY; COLOR,URINE YELLOW; NITRITE,URINE NEGATIVE (NEG); PROTEIN,URINE 30 mg/dL (NEG-TRACE); UROBILINOGEN,URINE 0.2 mg/dL (0.2 mg/dL)
[2020-12-03 08:58] LABS: BACTERIA,URINE MANY /HPF (0-FEW); WBC,URINE TNTC /HPF (0-4)
--- NOTE | 2020-12-03 09:08 | RAD ---
Exam performed: X-ray one view chest and one view pelvis with left hip. HISTORY: Left hip pain and fever. DATE OF SERVICE: 12/03/2020. COMPARISON: None available FINDINGS: Single AP upright portable view of the chest demonstrates borderline cardiomegaly. The pulmonary vasc ularity is mildly congested. No focal infiltrates, effusion or pneumothorax is seen. Single view pelvis with AP and frog-leg lateral view of the left hip demonstrates mild degenerative c hanges involving bilateral hips. There is no acute fracture or dislocation. No soft tissue swelling o r foreign body seen. IMPRESSION: 1. Borderline cardiomegaly with coarse perihilar interstitial markings likely chronic changes or mil d pulmonary vascular congestion. 2. Early degenerative changes involving bilateral hips. No acute abnormality seen in the left hip. Electronically signed by: Theresa Patino MD (12/03/2020 9:06 AM) [id number]
[2020-12-03 10:33] LABS: % ATYL 2 % (0-0); % BANDS 1 % (0-9); % LYMPHS 5 % (24-48); % MONOS 8 % (0-10); % SEGS 84 % (35-66); PLT ESTIMATE ADEQUATE (ADEQUATE)
[2020-12-03] MEDS ORDERED: cefTRIAXone IV Push 1 GM VIAL. IVP ONE (11:30)
[2020-12-03] MEDS ORDERED: ONDANSETRON PF 4 MG/2 ML VIAL. IV PRN (12:30)
[2020-12-03] MEDS: IV NORMAL SALINE 1000ML BAG 1,000 ML IV SCH ×2 (14:54→23:43)
[2020-12-03] MEDS: fentaNYL PF VIAL 100 MCG/2 ML VIAL IV PRN (14:56)
[2020-12-03 15:00] VITALS: BP 127/81
[2020-12-03] MEDS ORDERED: POTASSIUM CHLORIDE 20 MEQ TABLET.ER. PO ONE (15:30)
--- NOTE | 2020-12-03 17:40 | RAD ---
Examination: Ultrasound kidneys HISTORY: History of renal failure COMPARISON: None available FINDINGS: Right kidney measures 9.1 x 4.50 4.4 cm . The left kidney measures 9.7 x 4.7 x 4.7 cm. 6 mm calculus right kidney. No evidence of hydronephrosis. Urinary bladder is mildly distended. Examination limited due to bowel gas IMPRESSION: 1. 6 mm calculus right kidney. Electronically signed by: Teo Koroma MD (12/03/2020 5:38 PM) [id number]
[2020-12-03] MEDS: oxyCODONE/APAP 5/325 1 TAB TABLET PO PRN ×2 (18:09→23:41)
[2020-12-03 19:00] VITALS: BP_SYST 140; BP_SYST 173; BP_DIAS 121; BP_DIAS 78
[2020-12-03 21:11] VITALS: BP 149/89
[2020-12-03 23:00] VITALS: BP 140/78
[2020-12-04 03:00] VITALS: BP 135/82
[2020-12-04 07:00] VITALS: BP 165/95
[2020-12-04] MEDS: fentaNYL PF VIAL 100 MCG/2 ML VIAL IV PRN ×2 (07:54→11:55)
[2020-12-04 09:55] LABS: BASO # 0.1 x10^3/uL (0.0-0.2); BASO % 1 % (0-3); EOS % 0 % (0-3); HEMATOCRIT 38.5 % (36.0-47.0); HEMOGLOBIN 12.4 g/dL (12.0-15.5); LYMPH # 0.8 x10^3/uL (1.0-4.8); LYMPH % 4 % (24-48); MEAN CORPUSCULAR HEMOGLOBIN 28 pg (25-35); MEAN CORPUSCULAR HGB CONC 32 g/dL (31-37); MEAN CORPUSCULAR VOLUME 88 fL (79-100); MONO # 0.9 x10^3/uL (0.0-1.1); MONO % 5 % (0-9); NEUT # 16.6 x10^3/uL (1.8-7.7); NEUT % 91 % (31-73); PLATELET COUNT 307 x10^3/uL (140-400); RED BLOOD COUNT 4.38 x10^6/uL (3.50-5.40); RED CELL DISTRIBUTION WIDTH 14.2 % (11.5-14.5); WHITE BLOOD COUNT 18.4 x10^3/uL (4.0-11.0)
[2020-12-04] MEDS ORDERED: CYCLOBENZAPRINE 10 MG TABLET. PO PRN (10:00)
[2020-12-04 10:07] LABS: CALCIUM 8.5 mg/dL (8.5-10.1); CREATININE 2.2 mg/dL (0.6-1.0); GFR 26.5; POTASSIUM 3.5 mmol/L (3.5-5.1)
[2020-12-04 11:00] VITALS: BP 123/79
--- NOTE | 2020-12-04 11:20 | PDOC ---
Provider Note Date of Service: DATE: 12/04/20 TIME: 11:19 Provider Note Pt seen.H&P done #[id number]. Justifications for Admission Other Justification ALESSIA JOHNSTON MD Dec 04, 2020 11:20
[2020-12-04] MEDS: IV NORMAL SALINE 1000ML BAG 1,000 ML IV SCH (11:34)
--- NOTE | 2020-12-04 11:51 | HP ---
ADMIT DATE: 12/03/2020 MEDICAL HISTORY AND PHYSICAL LOCATION: [facility]. REASON FOR ADMISSION TO THE HOSPITAL: Urosepsis. HISTORY OF PRESENT ILLNESS: The patient is a 75-year-old female, patient came to the Emergency Room not feeling well, nausea, feverish and pain in the hip. The patient was seen in the Emergency Room, white count was 20,000. Urine shows lot of leukocytes and potassium was low at 3.2. Creatinine was high at 3 and the patient was admitted to the hospital, was given fluids and IV antibiotics. The patient was at [facility] 10 days ago for abdominal pain. She had an ileus, had NG tube. She was there for 3-4 days and she was discharged and had a knee surgery. She has a history of colon cancer, had a surgery 10 years ago and she also had hernia repair 2-3 years after the colon surgery. PAST MEDICAL HISTORY: As mentioned, history of arthritis. The patient had a cortisone injection to the hip last 6 months ago. She had a history of hypertension, arthritis, obesity, kidney disease, creatinine less than 2, colon cancer. PAST SURGICAL HISTORY: Had a colon resection 10 years ago for colon cancer. She also had a ventral hernia repair. PERSONAL HISTORY: Denies smoking, alcohol, or drug abuse. ALLERGIES: DOXYCYCLINE, HYDRALAZINE, LOSARTAN, MORPHINE. MEDICATIONS AT HOME: The patient is on Lasix 40 mg daily, losartan 100 mg daily, oxycodone for pain. FAMILY HISTORY: Positive for hypertension and arthritis. REVIEW OF SYMPTOMS: Complains of pain in the left hip, has some burning in the urine, some nausea and rest of the 14-system was reviewed and negative. I spoke with the patient's daughter who is a nurse at [facility]. PHYSICAL EXAMINATION: GENERAL: Elderly female, obese. She weighs 92 kg. BMI 37. HEENT: Head is atraumatic. Pupils equal. Oral cavity: No congestion. NECK: Supple. Thyroid not enlarged. JVD not elevated. CHEST: Symmetrical. CARDIOVASCULAR: S1, S2. LUNGS: Clear to auscultation. ABDOMEN: Scar of previous surgeries, mostly colon cancer, hernia repair. She has abdominal binder. Soft, bowel sounds present, no mass palpable. EXTERNAL GENITALIA: No Du. RECTAL: Deferred. EXTREMITIES: Chronic lymphedema. The patient has a chronic pain in the left hip, able to use a walker, stand up from the bed and did not examine her gait today. NEUROLOGIC: No focal deficits. Moving all extremities. VITAL SIGNS: At the time of admission shows a temperature of 100.3, pulse 110, respirations 18, blood pressure 157/89, 96 on room air. LABORATORY DATA: Shows a white count of 19, hemoglobin 13.7, platelets 300. Electrolytes show sodium 139, potassium 3.2, chloride 97, bicarbonate 28, anion gap 14, BUN 67, creatinine 3.0, glucose 120, lactic acid 1.7. LFTs normal. Urine shows large leukocyte esterase, too many white cells. Chest x-ray was negative. X-ray of the hip arthritis. FINAL IMPRESSION: 1. Urosepsis with elevated white count. 2. Acute renal insufficiency. Her creatinine is usually less than 2. 3. Urinary tract infection, possibly with Escherichia coli. 4. Hypertension. 5. Arthritis. 6. Recent admission to [place] for partial small-bowel obstruction. 7. History of colon cancer with colon resection 10 years ago and a hernia repair 3 years later. 8. Morbid obesity. PLAN: At this time, admit to the hospital, hydrated with IV fluids, after urine and blood culture start on IV Rocephin, hydrate with IV fluids, ultrasound of the kidneys, no hydronephrosis, shows a stone in the and kidney function is trending down. We will monitor the kidney function. We will talk with the patient's daughter who is a nurse at [facility]. ALESSIA JOHNSTON MD DR: FABIO/kalpesh JOB#: [id number] / [id number]
[2020-12-04] MEDS: cefTRIAXone IV Push 1 GM VIAL. IVP SCH (12:03)
--- NOTE | 2020-12-04 14:06 | CONS ---
DATE OF CONSULTATION: ORTHOPEDIC CONSULTATION REQUESTING PHYSICIAN: Fortunato Garnett MD REASON FOR CONSULTATION: Left hip pain. HISTORY OF PRESENT ILLNESS: The patient is a very pleasant 75-year-old female who indicates that she was in usual state of good health aside from a previous more remote treatment for colon cancer with colon resection, but noted that just before her birthday, which she said is [birth year] she was helping her granddaughter get food and she made some cooked rice and not long after eating that developed pretty severe abdominal pain. She was evaluated and admitted at [facility] and was almost taken in for surgery for a blockage, but she discussed with them that if she can just move her bowels that she feels like this will be all right, indeed they did some testing with a small bowel follow through apparently and she was able to pass stool and has since had resolution of her abdominal pain issues and has been eating and making stools since that time. She notes that there was concern for a stricture because of her previous colon cancer surgery, but she has managed that well aside from this episode. She said, however, she was apprised a couple days ago when she developed a sudden onset of some hip pain. She said it is almost as if his pain moved over to her hip. She points to the buttock area, not quite the low back, really does not point over the lateral aspect of the hip at all and she says she has really no radiation down the leg, minimal radiation around to the groin and has difficulty lifting her leg up because the hip catches her with severe pain. It was extremely severe and intolerable a couple of days ago, but a bit more manageable now and with pain medicine she says she can actually lift her leg up. She had never had difficulty bearing weight on an extended extremity, but it is really lifting her leg up moving side to side that has been more of a problem. She notes in the past perhaps a year ago or so her doctor here had given her an injection in her hip when she had similar symptoms and it seemed to work very well. It seems based on the description that may have been Dr. Leblanc, but she does not recall exactly. I noted in the Emergency Department note that it was reported that she has had sciatica before and this feels the same. She indicates that she has had sciatica before, but says this pain does not really feel the same to her as she is not having radiating pain down the leg. She is concerned, however, that she normally gets around well as can be expected after the colon cancer issues, but is very severely limited by the hip pain today. PAST MEDICAL HISTORY: Significant for colon cancer, history of pulmonary embolisms, arthritis and hypertension. PAST SURGICAL HISTORY: Colon resection for the colon cancer as well as hernia surgery. MEDICATIONS: List is reviewed. ALLERGIES: Significant for DOXYCYCLINE, MORPHINE AND HYDRALAZINE ALL OF WHICH GIVE HER A MILD SKIN RASH. FAMILY HISTORY: Noncontributory. SOCIAL HISTORY: Denies any smoking, alcohol or drug use. REVIEW OF SYSTEMS: Independently ambulating prior to this hip issue and has had resolution of her previous bowel obstruction issue. She denies any shortness of breath or respiratory symptoms. She does say that she has not been drinking much water or other liquids and feels like she has some dark urine because she had been having difficulty really getting up and around out of bed, but does not report any constipation and no abdominal pain and is able to pass her urine and stool without difficulty. Again, no fever, chills, focal weakness, numbness or tingling and otherwise review of systems is negative. She denies specifically any lower extremity swelling and has had some of those issues in the past when her blood pressure medication was changed and those resolved with the correction of her blood pressure medication issues. PHYSICAL EXAMINATION: She really has no pain on bearing weight through an extended extremity at all. On movement of her leg her pain is localized more to the gluteus musculature area. She has a negative straight leg raise other than pulling on the muscles, which make them tight and uncomfortable. No instability of the hip. She is really not tender over the trochanteric bursa on palpation. Normal examination of the contralateral right hip, bilateral knees and ankles and really does not have any significant lower extremity swelling. Her motor function, distal pulses, sensation, reflexes, skin are intact in both lower extremities throughout. IMAGING: X-rays show minimal degenerative change with well-maintained joint spaces in both hips. No evidence of fracture or other bony abnormality. IMPRESSION: 1. Left buttock area pain, nonradiating in nature. 2. History of recent small-bowel obstruction addressed nonoperatively with no ongoing symptoms. 3. History of colon cancer, status post resection, in remission. TREATMENT PLAN: I went over with her that I do not feel that her pain is really coming from her hip joint itself nor over the trochanteric bursa as she really has no significant tenderness in the area. Although she notes that she had had excellent relief with an injection in the area previously I suspect this was probably more for trochanteric bursitis and I told her I really do not favor a trigger point type injection, especially in the muscle as a steroid in that case would really go systemically and I do not believe an injection would be any more advantageous then for example an oral administration of steroids. I would probably at this point favor perhaps some Flexeril for what seems to be some muscle spasms might be responsible for the hip pain. I am not necessarily against some systemic steroids if it would help her early progress with physical therapy, but I think some gentle work with physical therapy for ambulation transfers and some surrounding strengthening of the hip girdle would be beneficial for her. I reviewed with her that again hip x-rays really look good and I do not anticipate any intervention either with injection or replacement of her joint at all and likewise since she is really not tender over the trochanteric bursa I do not favor injection in that area at present and finally I do not think that based on her description that sciatica is necessarily a cause and again favor symptomatic management. Orthopedic followup can really be on an as needed basis because I do not have much more to offer than the assessment of this condition or if she develops point tenderness over the bursa, the possibility of an injection in that area, which is not currently present. BERNARDINO VALDIVIA MD DR: KYLE/kalpesh JOB#: [id number] / [id number]
[2020-12-04 15:00] VITALS: BP 153/94
[2020-12-04] MEDS: fentaNYL PF VIAL 100 MCG/2 ML VIAL IVP PRN ×2 (18:50→20:22)
[2020-12-04] MEDS: LACTOBACILLUS RHAMNOSUS GG 1 CAPSULE. PO SCH (21:19)
[2020-12-04 23:00] VITALS: BP 144/82
[2020-12-05] MEDS: fentaNYL PF VIAL 100 MCG/2 ML VIAL IVP PRN (00:38)
[2020-12-05 07:00] VITALS: BP 132/76
[2020-12-05] MEDS: LACTOBACILLUS RHAMNOSUS GG 1 CAPSULE. PO SCH ×2 (08:42→20:41)
[2020-12-05] MEDS: oxyCODONE/APAP 5/325 1 TAB TABLET PO PRN ×3 (08:42→17:31)
[2020-12-05 10:08] LABS: BASO # 0.1 x10^3/uL (0.0-0.2); BASO % 1 % (0-3); EOS # 0.3 x10^3/uL (0.0-0.7); EOS % 3 % (0-3); HEMATOCRIT 40.6 % (36.0-47.0); HEMOGLOBIN 13.2 g/dL (12.0-15.5); LYMPH # 2.7 x10^3/uL (1.0-4.8); LYMPH % 21 % (24-48); MEAN CORPUSCULAR HEMOGLOBIN 29 pg (25-35); MEAN CORPUSCULAR HGB CONC 33 g/dL (31-37); MEAN CORPUSCULAR VOLUME 88 fL (79-100); MONO # 0.6 x10^3/uL (0.0-1.1); MONO % 5 % (0-9); NEUT # 8.8 x10^3/uL (1.8-7.7); NEUT % 71 % (31-73); PLATELET COUNT 308 x10^3/uL (140-400); RED BLOOD COUNT 4.63 x10^6/uL (3.50-5.40); RED CELL DISTRIBUTION WIDTH 14.1 % (11.5-14.5); WHITE BLOOD COUNT 12.4 x10^3/uL (4.0-11.0)
[2020-12-05 10:23] LABS: CALCIUM 8.8 mg/dL (8.5-10.1); CREATININE 1.8 mg/dL (0.6-1.0); GFR 33.4; POTASSIUM 3.3 mmol/L (3.5-5.1)
[2020-12-05 11:00] VITALS: BP 126/69
--- NOTE | 2020-12-05 11:09 | PDOC ---
IM PROGRESS NOTES- Subjective Subjective Complaints of hip pain. No complaints of abdominal pain. Objective Vitals/I&O Vital Signs Date Time Temp Pulse Resp B/P (MAP) Pulse Ox O2 Delivery O2 Flow Rate FiO2 12/05/20 08:42 20 98 Room Air 12/05/20 07:00 97.8 79 132/76 (94) 97.8 I & O 12/04/20 12/04/20 12/05/20 15:00 23:00 07:00 Output Total 0 ml 2 ml Balance 0 ml -2 ml Physical Exam Physical Exam General appearance - alert,well appearing, and in no distress and oriented to person, place, and time Mental Status - alert, oriented to person, place, and time, affect appropriate to mood Head - normal Chest - clear to auscultation, no wheezes, rales or rhonchi, symmetric air entry Heart - S1 and S2 normal Abdomen - soft, nontender, nondistended, no masses or organomegaly Neurological - alert and oriented Musculoskeletal - no muscular tenderness noted Extremities - no pedal edema Skin - warm and dry Labs Laboratory Tests Test 12/05/20 08:53 12/05/20 08:55 Sodium Level 142 mmol/L (136-145) Potassium Level 3.3 mmol/L (3.5-5.1) L Chloride Level 104 mmol/L (98-107) Carbon Dioxide Level 27 mmol/L (21-32) Anion Gap 11 (6-14) Blood Urea Nitrogen 52 mg/dL (7-20) H Creatinine 1.8 mg/dL (0.6-1.0) H Estimated GFR (Cockcroft-Gault) 33.4 Glucose Level 90 mg/dL (70-99) Calcium Level 8.8 mg/dL (8.5-10.1) White Blood Count 12.4 x10^3/uL (4.0-11.0) H Red Blood Count 4.63 x10^6/uL (3.50-5.40) Hemoglobin 13.2 g/dL (12.0-15.5) Hematocrit 40.6 % (36.0-47.0) Mean Corpuscular Volume 88 fL (79-100) Mean Corpuscular Hemoglobin 29 pg (25-35) Mean Corpuscular Hemoglobin Concent 33 g/dL (31-37) Red Cell Distribution Width 14.1 % (11.5-14.5) Platelet Count 308 x10^3/uL (140-400) Neutrophils (%) (Auto) 71 % (31-73) Lymphocytes (%) (Auto) 21 % (24-48) L Monocytes (%) (Auto) 5 % (0-9) Eosinophils (%) (Auto) 3 % (0-3) Basophils (%) (Auto) 1 % (0-3) Neutrophils # (Auto) 8.8 x10^3/uL (1.8-7.7) H Lymphocytes # (Auto) 2.7 x10^3/uL (1.0-4.8) Monocytes # (Auto) 0.6 x10^3/uL (0.0-1.1) Eosinophils # (Auto) 0.3 x10^3/uL (0.0-0.7) Basophils # (Auto) 0.1 x10^3/uL (0.0-0.2) Laboratory Tests 12/05/20 08:55 Laboratory Tests 12/05/20 08:53 Meds Current Medications Medications (Trade) Dose Ordered Sig/Estee Route PRN Reason Start Time Stop Time Status Last Admin Dose Admin Ceftriaxone Sodium (Rocephin) 1 gm Q24H IVP 12/04/20 12:30 12/04/20 12:03 Fentanyl Citrate (Fentanyl 2ml Vial) 50 mcg PRN Q3HRS PRN IVP PAIN 12/04/20 14:45 12/05/20 00:38 Lactobacillus Rhamnosus (Culturelle) 1 cap BID PO 12/04/20 21:00 12/05/20 08:42 Assessment Assessment 1. Urosepsis with elevated white count. 2. Acute renal insufficiency. Her creatinine is usually less than 2. 3. Urinary tract infection, possibly with Escherichia coli. 4. Hypertension. 5. Arthritis. 6. Recent admission to [place] for partial small-bowel obstruction. 7. History of colon cancer with colon resection 10 years ago and a hernia repair 3 years later. 8. Morbid obesity. PLAN: At this time, admit to the hospital, hydrated with IV fluids, after urine and blood culture start on IV Rocephin, hydrate with IV fluids, ultrasound of the kidneys, no hydronephrosis, shows a stone and kidney function is trending down. We will monitor the kidney function. Hypokalemia-potassium 3.3. Replace Acute renal failure-improving. BUN is 52, creatinine 1.8. Continue IV fluids. E. coli UTI-continue IV Rocephin. Plan Plan For more details regarding further plans, please refer to the orders. Justifications for Admission Other Justification PETERSON PACHECO MD Dec 05, 2020 11:09
[2020-12-05] MEDS ORDERED: POTASSIUM CHLORIDE 20 MEQ TABLET.ER. PO ONE (12:00)
[2020-12-05] MEDS: cefTRIAXone IV Push 1 GM VIAL. IVP SCH (12:30)
[2020-12-05 15:00] VITALS: BP 117/77
[2020-12-05 19:00] VITALS: BP 103/50
[2020-12-05 23:00] VITALS: BP 158/82
[2020-12-06] MEDS ORDERED: ACETAMINOPHEN 500 MG TABLET PO PRN (03:30)
[2020-12-06] MEDS: oxyCODONE/APAP 5/325 1 TAB TABLET PO PRN ×2 (03:43→12:32)
[2020-12-06 07:00] VITALS: BP 165/83
[2020-12-06] MEDS: LACTOBACILLUS RHAMNOSUS GG 1 CAPSULE. PO SCH (08:04)
--- NOTE | 2020-12-06 09:14 | PDOC ---
PROGRESS NOTES Date of Service: DATE: 12/06/20 TIME: 09:12 Subjective Subjective feels good,ready to go home Objective Objective Vital Signs Date Time Temp Pulse Resp B/P (MAP) Pulse Ox O2 Delivery O2 Flow Rate FiO2 12/06/20 07:00 98.4 85 18 165/83 (110) 97 Room Air 98.4 Intake and Output 12/06/20 07:00 Output Total 100 ml Balance -100 ml Urine/Stool Mix 100 ml # Voids 7 # Bowel Movements 1 Physical Exam Heart: Regular rate Extremities: No clubbing General: Alert HEENT: Atraumatic Lungs: Clear to auscultation MUSCULOSKELETAL: Other Neck: Supple Neuro: Normal speech Psych/Mental Status: Mental status NL Skin: No breakdown Diagnosis Problem List Problems Medical Problems: (1) Acute on chronic renal failure Status: Acute (2) Left hip pain Status: Acute (3) Sepsis Status: Acute (4) UTI (urinary tract infection) Status: Acute Assessment Assessment 1. Urosepsis with elevated white count.E coli 2. Acute renal insufficiency. Her creatinine is usually less than 2. 3. Urinary tract infection, possibly with Escherichia coli. 4. Hypertension. 5. Arthritis. 6. Recent admission to [place] for partial small-bowel obstruction. 7. History of colon cancer with colon resection 10 years ago and a hernia repair 3 years later. 8. Morbid obesity. PLAN: d/c home today. keflex 500 po tid x7 days. cr 1.8 base line wbc 12.. blood c/s neg. At this time, admit to the hospital, hydrated with IV fluids, after urine and blood culture start on IV Rocephin, hydrate with IV fluids, ultrasound of the kidneys, no hydronephrosis, shows a stone and kidney function is trending down. We will monitor the kidney function. Hypokalemia-potassium 3.3. Replace Acute renal failure-improving. BUN is 52, creatinine 1.8. Continue IV fluids. E. coli UTI-continue IV Rocephin. Plan Plan of Care Problems Medical Problems: (1) Acute on chronic renal failure Status: Acute (2) Left hip pain Status: Acute (3) Sepsis Status: Acute (4) UTI (urinary tract infection) Status: Acute Comment Review of Relevant I have reviewed the following items ondina (where applicable) has been applied. Labs Microbiology 12/03/20 Blood Culture - Preliminary, Resulted NO GROWTH AFTER 2 DAYS 12/03/20 Urine Culture - Final, Complete 12/03/20 Antimicrobic Susceptibility - Final, Complete Medications Current Medications Acetaminophen (Tylenol) 500 mg PRN Q6HRS PRN PO MILD PAIN / TEMP > 100.3'F; Start 12/06/20 at 03:30 Potassium Chloride/Sodium Chloride 1,000 ml @ 75 mls/hr [id number] IV Last administered on 12/06/20at 03:15; Start 12/05/20 at 12:00 Potassium Chloride (Klor-Con) 20 meq 1X ONCE PO Last administered on 12/05/20at 12:29; Start 12/05/20 at 12:00; Stop 12/05/20 at 12:01; Status DC Vitals/I & O Vital Sign - Last 24 Hours 12/05/20 12/05/20 12/05/20 12/05/20 09:42 11:00 12:37 13:37 Temp 98.6 98.6 Pulse 81 Resp 20 18 20 20 B/P (MAP) 126/69 (88) Pulse Ox 100 98 98 100 O2 Delivery Room Air Room Air Room Air Room Air 12/05/20 12/05/20 12/05/20 12/05/20 15:00 17:31 18:31 19:00 Temp 98.4 97.6 98.4 97.6 Pulse 80 73 Resp 18 20 20 18 B/P (MAP) 117/77 (90) 103/50 (67) Pulse Ox 100 100 100 97 O2 Delivery Room Air Room Air Room Air Room Air 12/05/20 12/05/20 12/06/20 12/06/20 20:00 23:00 03:43 04:46 Temp 98.7 98.7 Pulse 81 Resp 18 B/P (MAP) 158/82 (107) Pulse Ox 99 99 99 O2 Delivery Room Air Room Air Room Air Room Air 12/06/20 07:00 Temp 98.4 98.4 Pulse 85 Resp 18 B/P (MAP) 165/83 (110) Pulse Ox 97 O2 Delivery Room Air Intake and Output 12/05/20 12/05/20 12/06/20 15:00 23:00 07:00 Output Total 100 ml Balance -100 ml Justifications for Admission Other Justification ALESSIA JOHNSTON MD Dec 06, 2020 09:14
[2020-12-06] MEDS ORDERED: CEPH750C9 PO (09:19)
[2020-12-06 11:00] VITALS: BP 149/84
--- NOTE | 2020-12-06 11:33 | NUR ---
SW following. Discussed with RN, pt from home. RN advised no SW needs. Discharge order for home with self care.
[2020-12-06] MEDS: cefTRIAXone IV Push 1 GM VIAL. IVP SCH (11:50)
--- NOTE | 2020-12-06 13:12 | NUR ---
Discharge Note: SHAMIKA BEAR Discharge instructions and discharge home medications reviewed with Patient and a copy given. All questions have been answered and understanding verbalized. The following instructions and handouts were given: discharge instructions, new prescription, education and follow up recommendations. Discontinued lines and drains: Peripheral IV discontinued intact. Patient discharged to Home or Self Care with Family Member via Wheelchair off unit by this RN.
--- NOTE | 2020-12-09 13:15 | PDOC ---
Provider Note Date of Service: DATE: 12/09/20 TIME: 13:14 Provider Note Discharge summary dictated.#[id number] Justifications for Admission Other Justification ALESSIA JOHNSTON MD Dec 09, 2020 13:15
--- NOTE | 2020-12-09 21:45 | DS ---
DATE OF DISCHARGE: 12/06/2020 REASON FOR ADMISSION TO THE HOSPITAL: Urosepsis, [id number] kidney disease and arthritis. CONSULTATION: Dr. West. HOSPITAL COURSE: The patient is a 75-year-old female. The patient was brought to the hospital because of abdominal pain, fever, white count of 19,000, urine infection and creatinine 3.0. Her creatinine is usually less than 2. The patient was given IV fluids, blood cultures, urine cultures, started on IV Rocephin. White count came down nicely to 12, creatinine came down to 1.8. Urine shows E. coli and the patient was having lot of pain in the hip. Seen by Orthopedic. It was thought maybe bursitis. On the whole, the patient's condition improved and it was felt that the patient could be discharged home and continue Keflex for UTI. FINAL DIAGNOSES: 1. Urinary tract infection, acute. 2. Escherichia coli urosepsis. 3. Cjbbb-[id number] kidney disease. 4. Arthritis. 5. Obesity. 6. History of colon cancer. 7. Recent admission to [facility] a couple of weeks ago for partial bowel obstruction. DISPOSITION: Home. DISCHARGE MEDICATIONS: See MRAD for discharge medications. Continue and finish off 10 days of antibiotics with Keflex. She also had some nonobstructive kidney stone, asymptomatic at this time. ALESSIA JOHNSTON MD DR: FABIO/kalpesh JOB#: [id number] / [id number]
== END 2020-12-06 13:15 | disposition home or self-care (01) | DRG 871 ==
LOC: ER 07:19 → 5 NORTH 11:27 → ER 13:30
PROVIDERS: ADMIT Internal Medicine; ATTEND Internal Medicine
DX: A41.51 Sepsis due to Escherichia coli [E. coli] (principal); N17.0 Acute kidney failure with tubular necrosis; N39.0 Urinary tract infection, site not specified; Z68.41 Body mass index [BMI] 40.0-44.9, adult; E66.01 Morbid (severe) obesity due to excess calories; E86.0 Dehydration; I12.9 Hypertensive chronic kidney disease with stage 1 through stage 4 chronic kidney disease, or unspecified chronic kidney disease; M19.90 Unspecified osteoarthritis, unspecified site; N18.9 Chronic kidney disease, unspecified; Z20.822 Contact with and (suspected) exposure to COVID-19; Z82.49 Family history of ischemic heart disease and other diseases of the circulatory system; Z85.038 Personal history of other malignant neoplasm of large intestine; Z86.711 Personal history of pulmonary embolism; Z90.49 Acquired absence of other specified parts of digestive tract; Z79.899 Other long term (current) drug therapy; Z88.8 Allergy status to other drugs, medicaments and biological substances; G89.29 Other chronic pain; M25.552 Pain in left hip; E87.6 Hypokalemia; N20.0 Calculus of kidney
CPT/HCPCS: 36415; 71045; 73502; 76770; 80048; 80053; 81001; 83605; 83690; 85007; 85025; 87040; 87077; 87086; 87186; 93005; 96361; 96374; 96375; 99285; J0696; J1100; J3010; J3480; J7030; P9612; G0378